=== PATIENT | male | born 1965 | race Caucasian/White ===

== ENCOUNTER 2021-01-06 15:57 | Inpatient (IN) | payer MEDICAID ==
[2021-01-06] MEDS ORDERED: Levofloxacin/Dextrose 5%-Water 500 MG in Premix Bag 1 BAG IV ONE (16:49)
--- NOTE | 2021-01-06 16:52 | EDM.PDOC ---
ED HPI GENERAL MEDICAL PROBLEM - General Chief Complaint: General Stated Complaint: Dehydration Time Seen by Provider: 01/06/21 16:40 Source of Information: Reports: Patient, Family, RN Notes Reviewed History Limitations: Reports: No Limitations - History of Present Illness INITIAL COMMENTS - FREE TEXT/NARRATIVE: 55-year-old gentleman presents emergency department the complaint of weakness, he does admit to having some low blood pressure feeling lightheaded he has been ill for about a week progressively getting worse. He is also had a weight loss over the last month or so of about 30 pounds. He states he has had some fevers but that now has resolved no shortness of breath no chest pain no nausea vomiting had some abdominal pain but that also resolved - Related Data Allergies Allergy/AdvReac Type Severity Reaction Status Date / Time ethinyl estradiol Allergy Other Verified 01/06/21 16:27 [From e ()] levonorgestrel Allergy Other Verified 01/06/21 16:27 [From Seasonale ()] Home Meds: Home Meds Valsartan/Hydrochlorothiazide [Valsartan-Hctz 160-12.5 mg Tab] 1 tab PO DAILY 01/06/21 [History] Past Medical History HEENT History: Reports: Impaired Vision Musculoskeletal History: Reports: Fracture Social & Family History - Tobacco Use Tobacco Use Status *Q: Current Every Day Tobacco User Years of Tobacco use: 45 Packs/Tins Daily: 1 - Recreational Drug Use Recreational Drug Use: No ED ROS GENERAL - Review of Systems Review Of Systems: See Below Constitutional: Reports: Fever, Weakness HEENT: Reports: No Symptoms Respiratory: Reports: No Symptoms Cardiovascular: Reports: No Symptoms GI/Abdominal: Reports: Abdominal Pain, Flatus : Reports: No Symptoms Musculoskeletal: Reports: No Symptoms Skin: Reports: No Symptoms ED EXAM, GENERAL - Physical Exam Exam: See Below Exam Limited By: No Limitations General Appearance: Alert, WD/WN, No Apparent Distress Eye Exam: Bilateral Eye: EOMI, Normal Inspection, PERRL Ears: Normal External Exam, Normal Canal, Hearing Grossly Normal, Normal TMs Nose: Normal Inspection, Normal Mucosa, No Blood Throat/Mouth: Normal Inspection, Normal Lips, Normal Teeth, Normal Gums, Normal Voice, No Airway Compromise, Other (Candidiasis posterior pharynx) Head: Atraumatic, Normocephalic Neck: Normal Inspection, Supple, Non-Tender, Full Range of Motion Respiratory/Chest: No Respiratory Distress, Lungs Clear, Normal Breath Sounds, No Accessory Muscle Use, Chest Non-Tender Cardiovascular: Regular Rate, Rhythm, No Murmur GI/Abdominal: Soft, Non-Tender Course - Vital Signs Last Recorded V/S: Last Vital Signs Temp 97.7 F 01/06/21 16:28 Pulse 99 01/06/21 17:37 Resp 19 01/06/21 17:37 BP 105/56 L 01/06/21 17:37 Pulse Ox 99 01/06/21 17:37 - Orders/Labs/Meds Orders: Active Orders 24 hr Category Date Time Status Vital Signs [RC] Q1H Care 01/06/21 16:47 Active Chest 1V Frontal [CR] Stat Exams 01/06/21 16:47 Ordered CULTURE BLOOD [BC] Urgent Lab 01/06/21 16:50 Received CULTURE BLOOD [BC] Urgent Lab 01/06/21 17:03 Received GLYCOSYLATED HEMOGLOBIN,HGBA1C [CHEM] Stat Lab 01/06/21 17:57 Ordered REFLEX LACTIC ACID YES OR NO [CHEM] Routine Lab 01/06/21 17:35 Received UA W/MICROSCOPIC [URIN] Urgent Lab 01/06/21 16:46 Ordered Lactated Ringers [Ringers, Lactated] 1,000 ml Med 01/06/21 17:00 Active IV ASDIRECTED Blood Culture x2 Reflex Set [OM.PC] Urgent Oth 01/06/21 16:47 Ordered Severe Sepsis Onset Time [OM.PC] Stat Oth 01/06/21 16:47 Ordered Medication Orders Lactated Ringer's (Ringers, Lactated) 1,000 mls @ 999 mls/hr IV ASDIRECTED SALV[place]OR Last Admin: 01/06/21 17:06 Dose: 999 mls/hr Documented by: CORRINE Labs: Laboratory Tests 01/06/21 01/06/21 01/06/21 Range/Units 16:50 17:03 17:03 WBC (4.5-11.0) K/uL RBC (4.30-5.90) M/uL Hgb (12.0-15.0) g/dL Hct (40.0-54.0) % MCV (80-98) fL MCH (27-31) pg MCHC (32-36) % Plt Count (150-400) K/uL Neut % (Auto) Lymph % (Auto) [place] % (Auto) Eos % (Auto) Baso % (Auto) Add Manual Diff Neutrophils % (Manual) (36-66) % Band Neutrophils % (5-11) % Lymphocytes % (Manual) (24-44) % Monocytes % (Manual) (2-6) % Atypical Lymphocytes PT 11.8 (9.5-12.0) sec INR 1.08 (0.80-1.20) Sodium (140-148) mmol/L Potassium (3.6-5.2) mmol/L Chloride (100-108) mmol/L Carbon Dioxide (21-32) mmol/L Anion Gap (5.0-14.0) mmol/L BUN (7-18) mg/dL Creatinine (0.8-1.3) mg/dL Est Cr Clr Drug Dosing mL/min Estimated GFR (MDRD) (>60) Glucose (74-106) mg/dL Lactic Acid (0.4-2.0) mmol/L Calcium (8.5-10.1) mg/dL Total Bilirubin (0.2-1.0) mg/dL AST (15-37) U/L ALT (12-78) U/L Alkaline Phosphatase (46-116) U/L Troponin I < 0.017 (0.000-0.056) ng/mL C-Reactive Protein (0.0-0.3) mg/dL Total Protein (6.4-8.2) g/dL Albumin (3.4-5.0) g/dL Globulin (2.3-3.5) g/dL Albumin/Globulin Ratio (1.2-2.2) Lipase 350 (73-393) U/L Procalcitonin 1.23 ng/mL 01/06/21 01/06/21 01/06/21 Range/Units 17:03 17:03 17:03 WBC 17.3 H (4.5-11.0) K/uL RBC 4.59 (4.30-5.90) M/uL Hgb 14.6 (12.0-15.0) g/dL Hct 42.2 (40.0-54.0) % MCV 92 (80-98) fL MCH 32 H (27-31) pg MCHC 35 (32-36) % Plt Count 191 (150-400) K/uL Neut % (Auto) [place] Lymph % (Auto) [place] % (Auto) [place] Eos % (Auto) [place] Baso % (Auto) [place] Add Manual Diff Yes Neutrophils % (Manual) 72 H (36-66) % Band Neutrophils % 8 (5-11) % Lymphocytes % (Manual) 10 L (24-44) % Monocytes % (Manual) 10 H (2-6) % Atypical Lymphocytes Rare PT (9.5-12.0) sec INR (0.80-1.20) Sodium 118 L* (140-148) mmol/L Potassium 4.5 (3.6-5.2) mmol/L Chloride 77 L (100-108) mmol/L Carbon Dioxide 11 L (21-32) mmol/L Anion Gap 34.5 H (5.0-14.0) mmol/L BUN 48 H (7-18) mg/dL Creatinine 2.0 H (0.8-1.3) mg/dL Est Cr Clr Drug Dosing 33.59 mL/min Estimated GFR (MDRD) 35 L (>60) Glucose 628 H* (74-106) mg/dL Lactic Acid 2.1 H (0.4-2.0) mmol/L Calcium 8.5 (8.5-10.1) mg/dL Total Bilirubin 0.9 (0.2-1.0) mg/dL AST 47 H (15-37) U/L ALT 111 H (12-78) U/L Alkaline Phosphatase 161 H (46-116) U/L Troponin I (0.000-0.056) ng/mL C-Reactive Protein 22.50 H (0.0-0.3) mg/dL Total Protein 6.7 (6.4-8.2) g/dL Albumin 2.5 L (3.4-5.0) g/dL Globulin 4.2 H (2.3-3.5) g/dL Albumin/Globulin Ratio 0.6 L (1.2-2.2) Lipase (73-393) U/L Procalcitonin ng/mL Meds: Medications Generic Name Dose Route Start Last Admin Trade Name Freq PRN Reason Stop Dose Admin Lactated Ringer's 1,000 mls @ 999 mls/hr 01/06/21 17:00 01/06/21 17:06 Ringers, Lactated IV 999 mls/hr ASDIRECTED [place]OR Administration Discontinued Medications Generic Name Dose Route Start Last Admin Trade Name Enzo PRN Reason Stop Dose Admin Levofloxacin/Dextrose 500 mg/ 100 mls @ 100 mls/hr 01/06/21 16:49 01/06/21 17:06 Premix IV 01/06/21 17:48 100 mls/hr ONETIME ONE Administration Departure - Departure Time of Disposition: 18:05 Disposition: Admitted As Inpatient 66 Condition: Fair Clinical Impression: Sepsis Qualifiers: Sepsis type: sepsis due to unspecified organism Sepsis acute organ dysfunction status: with acute organ dysfunction Severe sepsis acute organ dysfunction type: acute renal failure Acute renal failure type: unspecified Severe sepsis shock status: without septic shock Qualified Code(s): A41.9 - Sepsis, unspecified organism; R65.20 - Severe sepsis without septic shock; N17.9 - Acute kidney failure, unspecified - Discharge Information Referrals: Tom Oden MD [Primary Care Provider] - Forms: ED Department Discharge Critical Care Note - Critical Care Note Total Time (mins): 30 Sepsis Event Note (ED) - Evaluation Sepsis Screening Result: No Definite Risk - Focused Exam Vital Signs: Vital Signs Temp Pulse Resp BP Pulse Ox 01/06/21 17:37 99 19 105/56 L 99 01/06/21 17:03 102 H 24 H 87/53 L 98 01/06/21 16:28 97.7 F 103 H 16 90/52 L 98 01/06/21 16:14 97.7 F 103 H 16 83/53 L 98 - My Orders Last 24 Hours: My Active Orders 01/06/21 16:46 UA W/MICROSCOPIC [URIN] Urgent 01/06/21 16:47 Vital Signs [RC] Q1H Chest 1V Frontal [CR] Stat Blood Culture x2 Reflex Set [OM.PC] Urgent Severe Sepsis Onset Time [OM.PC] Stat 01/06/21 16:50 CULTURE BLOOD [BC] Urgent 01/06/21 17:00 Lactated Ringers [Ringers, Lactated] 1,000 ml IV ASDIRECTED 01/06/21 17:03 CULTURE BLOOD [BC] Urgent 01/06/21 17:35 REFLEX LACTIC ACID YES OR NO [CHEM] Routine 01/06/21 17:57 GLYCOSYLATED HEMOGLOBIN,HGBA1C [CHEM] Stat - Assessment/Plan Last 24 Hours: My Active Orders 01/06/21 16:46 UA W/MICROSCOPIC [URIN] Urgent 01/06/21 16:47 Vital Signs [RC] Q1H Chest 1V Frontal [CR] Stat Blood Culture x2 Reflex Set [OM.PC] Urgent Severe Sepsis Onset Time [OM.PC] Stat 01/06/21 16:50 CULTURE BLOOD [BC] Urgent 01/06/21 17:00 Lactated Ringers [Ringers, Lactated] 1,000 ml IV ASDIRECTED 01/06/21 17:03 CULTURE BLOOD [BC] Urgent 01/06/21 17:35 REFLEX LACTIC ACID YES OR NO [CHEM] Routine 01/06/21 17:57 GLYCOSYLATED HEMOGLOBIN,HGBA1C [CHEM] Stat Plan: Assessment Acuity = acute Site and laterality = sepsis Etiology = unknown source Manifestations = hypotensive Location of injury = Home Lab values = WBC elevated 17.3 consistent leukocytosis, sodium low at 118 c orrected to 126 consistent hyponatremia creatinine elevated 2.0 consistent with acute renal failure stage G3 B glucose elevated 628 consistent hyperglycemia lactic acid elevated 2.1 AST 47 ALT 111 consistent with elevated liver enzymes troponin is negative CRP elevated 22.5 lipase is normal at 300 procalcitonin elevated 1.23, blood culture urine and chest x-ray pending Plan Call discussed case hospitalist on-call at 1800 kindly agreed to come evaluate the patient emergency department for admission thus far has received 2 L of fluids and 1 500 mg dose of Levaquin This note was dictated using [employer] voice recognition software please call with any questions on syntax or grammar.
[2021-01-06] MEDS ORDERED: Lactated Ringers 1,000 ML IV SCH (17:00)
[2021-01-06] MEDS ORDERED: Lactated Ringers 1,000 ML IV ONE (18:03)
[2021-01-06] MEDS ORDERED: Potassium Chloride 10% 20 MEQ/15 ML Soln 15 ML UD Cup PO PRN ×2 (18:22)
[2021-01-06] MEDS ORDERED: Potassium Chloride 20 MEQ in Premix Bag 1 BAG IV PRN ×4 (18:22)
[2021-01-06] MEDS ORDERED: Potassium Chloride 20 MEQ in Premix Bag 1 BAG IV ONE (18:22)
[2021-01-06] MEDS ORDERED: Magnesium Sulfate/Water 2 GM/50 ML BAG IV PRN (18:22)
[2021-01-06] MEDS ORDERED: 50% Dextrose in Water 50 ML Syringe IVPUSH PRN (18:22)
[2021-01-06] MEDS ORDERED: Sodium Chloride 0.9% 2,000 ML IV PRN (18:22)
[2021-01-06] MEDS ORDERED: Sodium Phosphate 60 MMOLE in Sodium Chloride 0.9% 250 ML IV PRN (18:22)
[2021-01-06 18:27] LABS: HEMOGLOBIN A1C 11.9 % (4.5-6.2)
[2021-01-06] MEDS ORDERED: Insulin Regular, Human 100 Units/ML 3 ML Vial IVPUSH ONE (18:29)
[2021-01-06] MEDS ORDERED: Insulin Regular in 0.9 % NACL 100 ML IV SCH (18:30)
--- NOTE | 2021-01-06 18:37 | PCM.HP.2 ---
H&P History of Present Illness - General Date of Service: 01/06/21 Admit Problem/Dx: Admission Diagnosis/Problem Admission Diagnosis/Problem Hyperglycemia Source of Information: Patient, Family, Provider, RN Notes Reviewed History Limitations: Reports: No Limitations - History of Present Illness Initial Comments - Free Text/Narative: Mr. Berry is a 55-year-old gentleman who was admitted through the emergency department with generalized weakness, dehydration, secondary to hyperosmotic hyperglycemic state. He has no prior history of diabetes. Over the past 3 weeks he has experienced sinus infection upper respiratory infection, fever, nausea vomiting with diarrhea. He no longer has a fever and has not had nausea, vomiting, or diarrhea over the past week. He is noted polydipsia and polyuria. Because of progressive weakness he presented to the emergency department today and was found to be severely hyperglycemic with a glucose level of 628. Creatinine is elevated at 2, he denies prior history of renal insufficiency. Anion gap is significantly elevated with marked decrease in carbon dioxide level. White blood cell count is elevated, but he denies symptoms of specific infection at the present time. - Related Data Allergies/Adverse Reactions: Allergies Allergy/AdvReac Type Severity Reaction Status Date / Time ethinyl estradiol Allergy Other Verified 01/06/21 16:27 [From Seasonale (91)] levonorgestrel Allergy Other Verified 01/06/21 16:27 [From Seasonale (91)] Home Medications: Home Meds Valsartan/Hydrochlorothiazide [Valsartan-Hctz 160-12.5 mg Tab] 1 tab PO DAILY 01/06/21 [History] Past Medical History HEENT History: Reports: Impaired Vision Musculoskeletal History: Reports: Fracture Social & Family History - Tobacco Use Tobacco Use Status *Q: Current Every Day Tobacco User Years of Tobacco use: 45 Packs/Tins Daily: 1 - Recreational Drug Use Recreational Drug Use: No H&P Review of Systems - Review of Systems: Review Of Systems: See Below General: Reports: Malaise, Weakness, Fatigue, Decreased Appetite, Weight Loss. Denies: Fever, Chills HEENT: Reports: No Symptoms Pulmonary: Reports: No Symptoms Cardiovascular: Reports: No Symptoms Gastrointestinal: Reports: No Symptoms Genitourinary: Reports: No Symptoms Musculoskeletal: Reports: Back Pain (Chronic) Skin: Reports: No Symptoms Psychiatric: Reports: No Symptoms Neurological: Reports: No Symptoms Hematologic/Lymphatic: Reports: No Symptoms Immunologic: Reports: No Symptoms Exam - Exam Exam: See Below - Vital Signs Vital Signs: Last Vital Signs Temp 97.7 F 01/06/21 16:28 Pulse 98 01/06/21 18:00 Resp 23 H 01/06/21 18:00 BP 111/65 01/06/21 18:00 Pulse Ox 96 01/06/21 18:00 Weight: 136 lb - Exam Quality Assessment: DVT Prophylaxis General: Alert, Oriented, Cooperative, Moderate Distress HEENT: Conjunctiva Clear, Hearing Intact, Normal Nasal Septum, Pupils Equal. No: Mucosa Moist & [place], Posterior Pharynx Clear (Thrush) Neck: Supple, Trachea Midline, +2 Carotid Pulse wo Bruit Lungs: Clear to Auscultation, Normal Respiratory Effort, Decreased Breath Sounds Cardiovascular: Regular Rate, Regular Rhythm, Normal S1, Normal S2. No: Systolic Murmur, Diastolic Murmur GI/Abdominal Exam: Soft, Non-Tender, No Organomegaly, No Distention Back Exam: Normal Inspection, Full Range of Motion, Vertebral Tenderness Extremities: Non-Tender, No Pedal Edema Skin: Warm, Dry, Intact Neurological: Cranial Nerves Intact, Strength Equal Bilateral, Normal Speech, Normal Tone, Sensation Intact. No: Focal Deficit Neuro Extensive - Mental Status: Alert, Oriented x3, Normal Mood/Affect, Normal Cognition, Memory Intact - Patient Data Lab Results Last 24 hrs: Laboratory Results - last 24 hr 01/06/21 01/06/21 01/06/21 Range/Units 16:50 17:00 17:03 WBC (4.5-11.0) K/uL RBC (4.30-5.90) M/uL Hgb (12.0-15.0) g/dL Hct (40.0-54.0) % MCV (80-98) fL MCH (27-31) pg MCHC (32-36) % Plt Count (150-400) K/uL Neut % (Auto) Lymph % (Auto) [place] % (Auto) Eos % (Auto) Baso % (Auto) Add Manual Diff Neutrophils % (Manual) (36-66) % Band Neutrophils % (5-11) % Lymphocytes % (Manual) (24-44) % Monocytes % (Manual) (2-6) % Atypical Lymphocytes PT 11.8 (9.5-12.0) sec INR 1.08 (0.80-1.20) Sodium (140-148) mmol/L Potassium (3.6-5.2) mmol/L Chloride (100-108) mmol/L Carbon Dioxide (21-32) mmol/L Anion Gap (5.0-14.0) mmol/L BUN (7-18) mg/dL Creatinine (0.8-1.3) mg/dL Est Cr Clr Drug Dosing mL/min Estimated GFR (MDRD) (>60) Glucose (74-106) mg/dL Hemoglobin A1c 11.9 H (4.5-6.2) % Lactic Acid (0.4-2.0) mmol/L Calcium (8.5-10.1) mg/dL Total Bilirubin (0.2-1.0) mg/dL AST (15-37) U/L ALT (12-78) U/L Alkaline Phosphatase (46-116) U/L Troponin I (0.000-0.056) ng/mL C-Reactive Protein (0.0-0.3) mg/dL Total Protein (6.4-8.2) g/dL Albumin (3.4-5.0) g/dL Globulin (2.3-3.5) g/dL Albumin/Globulin Ratio (1.2-2.2) Lipase (73-393) U/L Procalcitonin 1.23 ng/mL 01/06/21 01/06/21 01/06/21 Range/Units 17:03 17:03 17:03 WBC 17.3 H (4.5-11.0) K/uL RBC 4.59 (4.30-5.90) M/uL Hgb 14.6 (12.0-15.0) g/dL Hct 42.2 (40.0-54.0) % MCV 92 (80-98) fL MCH 32 H (27-31) pg MCHC 35 (32-36) % Plt Count 191 (150-400) K/uL Neut % (Auto) [employer] Lymph % (Auto) [employer] [place] % (Auto) [employer] Eos % (Auto) [employer] Baso % (Auto) [employer] Add Manual Diff Yes Neutrophils % (Manual) 72 H (36-66) % Band Neutrophils % 8 (5-11) % Lymphocytes % (Manual) 10 L (24-44) % Monocytes % (Manual) 10 H (2-6) % Atypical Lymphocytes Rare PT (9.5-12.0) sec INR (0.80-1.20) Sodium 118 L* (140-148) mmol/L Potassium 4.5 (3.6-5.2) mmol/L Chloride 77 L (100-108) mmol/L Carbon Dioxide 11 L (21-32) mmol/L Anion Gap 34.5 H (5.0-14.0) mmol/L BUN 48 H (7-18) mg/dL Creatinine 2.0 H (0.8-1.3) mg/dL Est Cr Clr Drug Dosing 33.59 mL/min Estimated GFR (MDRD) 35 L (>60) Glucose 628 H* (74-106) mg/dL Hemoglobin A1c (4.5-6.2) % Lactic Acid (0.4-2.0) mmol/L Calcium 8.5 (8.5-10.1) mg/dL Total Bilirubin 0.9 (0.2-1.0) mg/dL AST 47 H (15-37) U/L ALT 111 H (12-78) U/L Alkaline Phosphatase 161 H (46-116) U/L Troponin I < 0.017 (0.000-0.056) ng/mL C-Reactive Protein 22.50 H (0.0-0.3) mg/dL Total Protein 6.7 (6.4-8.2) g/dL Albumin 2.5 L (3.4-5.0) g/dL Globulin 4.2 H (2.3-3.5) g/dL Albumin/Globulin Ratio 0.6 L (1.2-2.2) Lipase 350 (73-393) U/L Procalcitonin ng/mL 01/06/21 Range/Units 17:03 WBC (4.5-11.0) K/uL RBC (4.30-5.90) M/uL Hgb (12.0-15.0) g/dL Hct (40.0-54.0) % MCV (80-98) fL MCH (27-31) pg MCHC (32-36) % Plt Count (150-400) K/uL Neut % (Auto) Lymph % (Auto) [place] % (Auto) Eos % (Auto) Baso % (Auto) Add Manual Diff Neutrophils % (Manual) (36-66) % Band Neutrophils % (5-11) % Lymphocytes % (Manual) (24-44) % Monocytes % (Manual) (2-6) % Atypical Lymphocytes PT (9.5-12.0) sec INR (0.80-1.20) Sodium (140-148) mmol/L Potassium (3.6-5.2) mmol/L Chloride (100-108) mmol/L Carbon Dioxide (21-32) mmol/L Anion Gap (5.0-14.0) mmol/L BUN (7-18) mg/dL Creatinine (0.8-1.3) mg/dL Est Cr Clr Drug Dosing mL/min Estimated GFR (MDRD) (>60) Glucose (74-106) mg/dL Hemoglobin A1c (4.5-6.2) % Lactic Acid 2.1 H (0.4-2.0) mmol/L Calcium (8.5-10.1) mg/dL Total Bilirubin (0.2-1.0) mg/dL AST (15-37) U/L ALT (12-78) U/L Alkaline Phosphatase (46-116) U/L Troponin I (0.000-0.056) ng/mL C-Reactive Protein (0.0-0.3) mg/dL Total Protein (6.4-8.2) g/dL Albumin (3.4-5.0) g/dL Globulin (2.3-3.5) g/dL Albumin/Globulin Ratio (1.2-2.2) Lipase (73-393) U/L Procalcitonin ng/mL Result Diagrams: 01/06/21 17:03 01/06/21 17:03 Sepsis Event Note - Evaluation Sepsis Screening Result: No Definite Risk - Focused Exam Vital Signs: Vital Signs Temp Pulse Resp BP Pulse Ox 01/06/21 18:00 98 23 H 111/65 96 01/06/21 17:37 99 19 105/56 L 99 01/06/21 17:03 102 H 24 H 87/53 L 98 01/06/21 16:28 97.7 F 103 H 16 90/52 L 98 01/06/21 16:14 97.7 F 103 H 16 83/53 L 98 *Q Meaningful Use (ADM) - VTE Risk Assess *Q Each Risk Factor Represents 1 Point: Age 41 - 59 years Total Score 1 Point Risk Factors: 1 Each Risk Factor Represents 2 Points: None Total Score 2 Point Risk Factors: 0 Each Risk Factor Represents 3 Points: None Total Score 3 Point Risk Factors: 0 Each Risk Factor Represents 5 Points: None Total Score 5 Point Risk Factors: 0 Venous Thromboembolism Risk Factor Score *Q: 1 Problem List Initiated/Reviewed/Updated: Yes Orders Last 24hrs: Active Orders 24 hr Category Date Time Status Patient Status Manage Transfer [TRANSFER] Routine ADT 01/06/21 18:31 Ordered Blood Glucose Check, Bedside [RC] Q1H Care 01/06/21 18:22 Active Communication Order [RC] ASDIRECTED Care 01/06/21 18:22 Active Diabetes Education [RC] Click to Edit Care 01/06/21 18:22 Active Diabetes Education [RC] Click to Edit Care 01/06/21 18:22 Active Notify Provider Laboratory Res [RC] ASDIRECTED Care 01/06/21 18:23 Active Notify Provider Laboratory Res [RC] ASDIRECTED Care 01/06/21 18:24 Active Notify Provider Laboratory Res [RC] ASDIRECTED Care 01/06/21 18:24 Active Notify Provider [RC] PRN Care 01/06/21 18:22 Active Vital Signs [RC] Q1H Care 01/06/21 16:47 Active Vital Signs [RC] Q1H Care 01/06/21 18:22 Active Chest 1V Frontal [CR] Stat Exams 01/06/21 16:47 Taken BASIC METABOLIC PANEL,BMP [CHEM] Q4H Lab 01/06/21 18:30 Ordered BASIC METABOLIC PANEL,BMP [CHEM] Q4H Lab 01/06/21 22:30 Ordered BASIC METABOLIC PANEL,BMP [CHEM] Q4H Lab 01/07/21 02:30 Ordered BASIC METABOLIC PANEL,BMP [CHEM] Q4H Lab 01/07/21 06:30 Ordered BASIC METABOLIC PANEL,BMP [CHEM] Q4H Lab 01/07/21 10:30 Ordered BASIC METABOLIC PANEL,BMP [CHEM] Q4H Lab 01/07/21 14:30 Ordered COVID-19/FLU A+B/RSV [MOLEC] Urgent Lab 01/06/21 18:07 Ordered CULTURE BLOOD [BC] Urgent Lab 01/06/21 16:50 Received CULTURE BLOOD [BC] Urgent Lab 01/06/21 17:03 Received KETONES,URINE [URIN] Stat Lab 01/06/21 18:22 Ordered MAGNESIUM [CHEM] Q Lab 01/06/21 18:30 Ordered MAGNESIUM [CHEM] Q Lab 01/07/21 00:30 Ordered MAGNESIUM [CHEM] Q Lab 01/07/21 06:30 Ordered MAGNESIUM [CHEM] Q Lab 01/07/21 12:30 Ordered PHOSPHORUS [CHEM] Q Lab 01/06/21 18:30 Ordered PHOSPHORUS [CHEM] Q Lab 01/07/21 00:30 Ordered PHOSPHORUS [CHEM] [facility] Lab 01/07/21 06:30 Ordered PHOSPHORUS [CHEM] [facility] Lab 01/07/21 12:30 Ordered POTASSIUM,K [CHEM] [facility] Lab 01/06/21 20:30 Ordered POTASSIUM,K [CHEM] [facility] Lab 01/07/21 00:30 Ordered POTASSIUM,K [CHEM] [facility] 01/07/21 02:30 Ordered POTASSIUM,K [CHEM] [facility] 01/07/21 04:30 Ordered POTASSIUM,K [CHEM] [facility] 01/07/21 06:30 Ordered POTASSIUM,K [CHEM] [facility] 01/07/21 08:30 Ordered POTASSIUM,K [CHEM] [facility] 01/07/21 10:30 Ordered POTASSIUM,K [CHEM] [facility] 01/07/21 12:30 Ordered POTASSIUM,K [CHEM] [facility] 01/07/21 14:30 Ordered POTASSIUM,K [CHEM] [facility] 01/07/21 16:30 Ordered REFLEX LACTIC ACID YES OR NO [CHEM] Routine Lab 01/06/21 17:35 Received UA W/MICROSCOPIC [URIN] Urgent Lab 01/06/21 16:46 Ordered Dextrose 5%-0.45% NaCl [Dextrose 5%-1/2 NS] 1,000 ml Med 01/06/21 18:22 Active IV .CONTINUOUS Dextrose 50% in Water Med 01/06/21 18:22 Active 50 ml IVPUSH ONETIME PRN Insulin Regular in 0.9 % NACL [Myxredlin in NS 100 UNIT Med 01/06/21 18:30 Active /100 ML] 100 ml IV ASDIRECTED Lactated Ringers [Ringers, Lactated] 1,000 ml Med 01/06/21 18:03 Active IV BOLUS Magnesium Sulfate/Water [Magnesium Sulfate in Water 2 Med 01/06/21 18:22 Active GM/50 ML] 2 gm in 50 ml IV ONETIME Potassium Chloride [KCL in Water 20 MEQ/100 ML] 20 meq Med 01/06/21 18:22 Active Premix Bag 1 bag IV ONETIME Potassium Chloride [KCL in Water 20 MEQ/100 ML] 20 meq Med 01/06/21 18:22 Active Premix Bag 1 bag IV Q2H Potassium Chloride [KCL in Water 20 MEQ/100 ML] 20 meq Med 01/06/21 18:22 Active Premix Bag 1 bag IV Q2H Potassium Chloride [Potassium Chloride Solution] Med 01/06/21 18:22 Active 20 meq PO NOW PRN Potassium Chloride [Potassium Chloride Solution] [facility] 01/06/21 18:22 Active 40 meq PO NOW PRN Potassium Chloride [Potassium Chloride Solution] [facility] 01/06/21 18:22 Active 40 meq PO Q2H PRN Sodium Chloride 0.9% [Normal Saline] 2,000 ml [facility] 01/06/21 18:22 Active IV .CONTINUOUS Sodium Phosphate 60 mmole Med 01/06/21 18:22 Active Sodium Chloride 0.9% [Normal Saline] 250 ml IV ONETIME Blood Culture x2 Reflex Set [OM.PC] Urgent Ot 01/06/21 16:47 Ordered Medication Continuation Instructions [OM.PC] ASDIRECTED Ot 01/06/21 18:30 Ordered Medication Discontinuation Instructions [OM.PC] Ot 01/06/21 18:30 Ordered ASDIRECTED Severe Sepsis Onset Time [OM.PC] Stat Ot 01/06/21 16:47 Ordered Resuscitation Status Routine Resus Stat 01/06/21 18:34 Ordered Medication Orders Dextrose/Water (50% Dextrose In Water 50 Ml Syringe) 50 ml IVPUSH ONETIME PRN PRN Reason: Blood Glucose Lactated Ringer's (Ringers, Lactated) 1,000 mls @ 999 mls/hr IV BOLUS ONE Stop: 01/06/21 19:03 Last Admin: 01/06/21 18:05 Dose: 999 mls/hr Documented by: CORRINE Sodium Chloride (Normal Saline) 2,000 mls @ 500 mls/hr IV .CONTINUOUS PRN PRN Reason: Blood Glucose Dextrose/Sodium Chloride (Dextrose 5%-1/2 Ns) 1,000 mls @ 150 mls/hr IV .CONTINUOUS PRN PRN Reason: Blood Glucose Potassium Chloride 20 meq/ (Premix) 100 mls @ 50 mls/hr IV ONETIME ONE Stop: 01/06/21 20:21 Potassium Chloride 20 meq/ (Premix) 100 mls @ 50 mls/hr IV Q2H PRN PRN Reason: Hypokalemia Potassium Chloride 20 meq/ (Premix) 100 mls @ 50 mls/hr IV Q2H PRN PRN Reason: Hypokalemia Magnesium Sulfate (Magnesium Sulfate In Water 2 Gm/50 Ml) 2 gm in 50 mls @ 25 mls/hr IV ONETIME PRN PRN Reason: low magnesium Sodium Phosphate 60 mmole/ (Sodium Chloride) 270 mls @ 62.5 mls/hr IV ONETIME PRN PRN Reason: Low phophorus Insulin Regular in 0.9 % NACL (Myxredlin In Ns 100 Unit/100 Ml) 100 mls @ 6.169 mls/hr IV ASDIRECTED [place]; Protocol Potassium Chloride (Potassium Chloride 10% 20 Meq/15 Ml Soln 15 Ml Ud Cup) 20 meq PO NOW PRN PRN Reason: Hypokalemia Potassium Chloride (Potassium Chloride 10% 20 Meq/15 Ml Soln 15 Ml Ud Cup) 40 meq PO NOW PRN PRN Reason: Hypokalemia Potassium Chloride (Potassium Chloride 10% 20 Meq/15 Ml Soln 15 Ml Ud Cup) 40 meq PO Q2H PRN PRN Reason: Hypokalemia Assessment/Plan Comment:: ASSESSMENT AND PLAN HYPEROSMOTIC HYPERGLYCEMIC STATE-secondary to uncontrolled type 2 diabetes mellitus. -IV insulin bolus and continuous infusion of insulin per protocol -IV fluids per protocol -Close monitoring of electrolytes and glucose level -Electrolyte replacement per protocol POSSIBLE INFECTION-elevated white blood cell count, question of sepsis with hypotension. Findings may also be secondary to his hyperosmotic hyperglycemic state. Chest x-ray shows no obvious infiltrates, urinalysis is pending. -Blood cultures pending -Urinalysis pending -Empiric IV antibiotic therapy; vancomycin and meropenem pending cultures and further evaluation -Consider further evaluation including CT scan of the abdomen TYPE 2 DIABETES MELLITUS-new diagnosis -Management as above -Transition to other medications when HHS has stabilized ACUTE KIDNEY INJURY-likely secondary to dehydration and intravascular volume depletion -IV fluids as above -Closely monitor urine output and renal function HYPONATREMIA-some of this is pseudohyponatremia related to current hyperosmolar state -IV fluids and management as above -Follow sodium levels with BMP per protocol NICOTINE DEPENDENCE -Nicotine patch and nicotine gum as needed MAINTENANCE ISSUES -DVT prophylaxis; SCUDs -GI prophylaxis; not indicated -Mcgraw catheter; not indicated -Nutrition; consistent carbohydrate diet -Nicotine dependence; nicotine replacement as above CODE STATUS-FULL CODE ADMISSION STATUS-patient will be admitted to inpatient status, expect at least a 2 night hospital stay for evaluation and management of problems as outlined above. At the time of this admission I do not reasonably expected evaluation and management of this problem will require more than a 96 hour hospital stay. DISPOSITION-anticipate discharge to home after the hospital stay. PRIMARY CARE PROVIDER-Dr. Oden - Mortality Measure Prognosis:: Good
[2021-01-06 18:59] LABS: CORONAVIRUS COVID-19 NAA NEGATIVE (NEGATIVE)
[2021-01-06] MEDS ORDERED: Vancomycin 1 GM SDV IV SCH (19:09)
[2021-01-06] MEDS ORDERED: Sodium Chloride 0.9% 10 ML Syringe FLUSH PRN (19:09)
[2021-01-06] MEDS ORDERED: Albuterol 0.083% 2.5 MG/3 ML Neb Soln NEB PRN (19:09)
[2021-01-06] MEDS ORDERED: Polyethylene Glycol 3350 Powder 17 GM Packet PO PRN (19:09)
[2021-01-06] MEDS ORDERED: Acetaminophen 325 MG Tab PO PRN (19:09)
[2021-01-06] MEDS ORDERED: Nicotine Polacrilex 2 MG Gum CHEW PRN (19:17)
[2021-01-06] MEDS ORDERED: Meropenem 1 GM in Sodium Chloride 0.9% 100 ML IV SCH (20:00)
[2021-01-06] MEDS: Nicotine 7 MG/24 Hr Patch TRDERM SCH (20:22)
[2021-01-06] MEDS: Nicotine 21 MG/24 Hr Patch TRDERM SCH (20:22)
[2021-01-06] MEDS: Potassium Chloride 10% 20 MEQ/15 ML Soln 15 ML UD Cup PO PRN (23:06)
[2021-01-06] MEDS: Clotrimazole 10 MG Troche PO SCH (23:14)
[2021-01-06] MEDS: Norepinephrine 4 MG in Dextrose 5% in Water 246 ML IV SCH ×2 (23:43)
[2021-01-07] MEDS: Dextrose 5%-0.45% NaCl 1,000 ML IV PRN ×2 (00:57→07:45)
[2021-01-07] MEDS: Ondansetron 4 MG/2 ML SDV IV PRN ×3 (02:11→09:24)
[2021-01-07] MEDS: Clotrimazole 10 MG Troche PO SCH ×5 (06:16→21:01)
[2021-01-07] MEDS: Potassium Chloride 10% 20 MEQ/15 ML Soln 15 ML UD Cup PO PRN ×2 (06:16→09:40)
[2021-01-07] MEDS: Meropenem 1 GM in Sodium Chloride 0.9% 100 ML IV SCH ×3 (08:18→23:00)
[2021-01-07] MEDS: Nicotine 21 MG/24 Hr Patch TRDERM SCH (08:20)
[2021-01-07] MEDS: Nicotine 7 MG/24 Hr Patch TRDERM SCH (08:22)
[2021-01-07] MEDS ORDERED: Sodium Phosphate 60 MMOLE in Sodium Chloride 0.9% 250 ML IV PRN (08:54)
--- NOTE | 2021-01-07 08:54 | CR ---
CHEST: Portable 01/06/2021 6:14 PM CLINICAL HISTORY:Low blood pressure COMPARISON:None FINDINGS: The heart size, pulmonary vascularity and hilar structures are normal. No infiltrate effusion or pneumothorax is seen. IMPRESSION: No acute cardiopulmonary process.
[2021-01-07] MEDS ORDERED: 50% Dextrose in Water 50 ML Syringe IV PRN (11:15)
[2021-01-07] MEDS ORDERED: Glucose Gel 15 GM in 37.5 GM Tube PO PRN (11:15)
--- NOTE | 2021-01-07 11:28 | PCM.PN ---
- General Info Date of Service: 01/07/21 Subjective Update: Mr. Berry's been stable since admission yesterday. Appetite remains somewhat poor, he denies abdominal pain, nausea, or vomiting. Blood sugars have come under much better control with use of insulin infusion and many of his electrolyte abnormalities have improved with glucose control and IV fluids. Functional Status: Reports: Urinating. Denies: Tolerating Diet - Review of Systems General: Reports: Weakness, Fatigue, Malaise. Denies: Appetite Pulmonary: Reports: No Symptoms Cardiovascular: Reports: No Symptoms Gastrointestinal: Reports: No Symptoms - Patient Data Vitals - Most Recent: Last Vital Signs Temp 98.6 F 01/07/21 07:00 Pulse 89 01/07/21 10:00 Resp 14 01/07/21 10:00 BP 118/70 01/07/21 10:00 Pulse Ox 94 L 01/07/21 10:00 Weight - Most Recent: 136 lb 0.015 oz I&O - Last 24 Hours: Intake & Output 01/06/21 01/07/21 01/07/21 22:59 06:59 14:59 Intake Total 2450 1775 90 Output Total 700 500 Balance 2450 1075 -410 Lab Results Last 24 Hours: Laboratory Results - last 24 hr 01/06/21 01/06/21 01/06/21 Range/Units 16:50 17:00 17:03 WBC (4.5-11.0) K/uL RBC (4.30-5.90) M/uL Hgb (12.0-15.0) g/dL Hct (40.0-54.0) % MCV (80-98) fL MCH (27-31) pg MCHC (32-36) % Plt Count (150-400) K/uL Neut % (Auto) Lymph % (Auto) [place] % (Auto) Eos % (Auto) Baso % (Auto) Add Manual Diff Neutrophils % (Manual) (36-66) % Band Neutrophils % (5-11) % Lymphocytes % (Manual) (24-44) % Monocytes % (Manual) (2-6) % Eosinophils % (Manual) (2-4) % Atypical Lymphocytes PT 11.8 (9.5-12.0) sec INR 1.08 (0.80-1.20) Sodium (140-148) mmol/L Potassium (3.6-5.2) mmol/L Chloride (100-108) mmol/L Carbon Dioxide (21-32) mmol/L Anion Gap (5.0-14.0) mmol/L BUN (7-18) mg/dL Creatinine (0.8-1.3) mg/dL Est Cr Clr Drug Dosing mL/min Estimated GFR (MDRD) (>60) Glucose (74-106) mg/dL Hemoglobin A1c 11.9 H (4.5-6.2) % Lactic Acid (0.4-2.0) mmol/L Calcium (8.5-10.1) mg/dL Phosphorus (2.5-4.9) mg/dL Magnesium (1.8-2.4) mg/dL Total Bilirubin (0.2-1.0) mg/dL AST (15-37) U/L ALT (12-78) U/L Alkaline Phosphatase (46-116) U/L Troponin I (0.000-0.056) ng/mL C-Reactive Protein (0.0-0.3) mg/dL Total Protein (6.4-8.2) g/dL Albumin (3.4-5.0) g/dL Globulin (2.3-3.5) g/dL Albumin/Globulin Ratio (1.2-2.2) Lipase (73-393) U/L Procalcitonin 1.23 ng/mL Urine Color (YELLOW) Urine Appearance (CLEAR) Urine pH (5.0-8.0) Ur Specific [place] (1.008-1.030) Urine Protein (NEGATIVE) mg/dL Urine Glucose (UA) (NEGATIVE) mg/dL Urine Ketones (NEGATIVE) mg/dL Urine Occult Blood (NEGATIVE) Urine Nitrite (NEGATIVE) Urine Bilirubin (NEGATIVE) Urine Urobilinogen (0.2-1.0) EU/dL Ur Leukocyte Esterase (NEGATIVE) Urine RBC (0-5) Urine WBC (0-5) Ur Epithelial Cells Amorphous Sediment Urine Bacteria Urine Mucus Ketones (NEGATIVE) Influenza Type A RNA (NEGATIVE) RSV RNA (INAAT) (NEGATIVE) Influenza Type B RNA (NEGATIVE) SARS-CoV-2 RNA (KULWANT) (NEGATIVE) 01/06/21 01/06/21 01/06/21 Range/Units 17:03 17:03 17:03 WBC 17.3 H (4.5-11.0) K/uL RBC 4.59 (4.30-5.90) M/uL Hgb 14.6 (12.0-15.0) g/dL Hct 42.2 (40.0-54.0) % MCV 92 (80-98) fL MCH 32 H (27-31) pg MCHC 35 (32-36) % Plt Count 191 (150-400) K/uL Neut % (Auto) [employer] Lymph % (Auto) [employer] [place] % (Auto) [employer] Eos % (Auto) [employer] Baso % (Auto) [employer] Add Manual Diff Yes Neutrophils % (Manual) 72 H (36-66) % Band Neutrophils % 8 (5-11) % Lymphocytes % (Manual) 10 L (24-44) % Monocytes % (Manual) 10 H (2-6) % Eosinophils % (Manual) (2-4) % Atypical Lymphocytes Rare PT (9.5-12.0) sec INR (0.80-1.20) Sodium 118 L* (140-148) mmol/L Potassium 4.5 (3.6-5.2) mmol/L Chloride 77 L (100-108) mmol/L Carbon Dioxide 11 L (21-32) mmol/L Anion Gap 34.5 H (5.0-14.0) mmol/L BUN 48 H (7-18) mg/dL Creatinine 2.0 H (0.8-1.3) mg/dL Est Cr Clr Drug Dosing 33.59 mL/min Estimated GFR (MDRD) 35 L (>60) Glucose 628 H* (74-106) mg/dL Hemoglobin A1c (4.5-6.2) % Lactic Acid (0.4-2.0) mmol/L Calcium 8.5 (8.5-10.1) mg/dL Phosphorus (2.5-4.9) mg/dL Magnesium (1.8-2.4) mg/dL Total Bilirubin 0.9 (0.2-1.0) mg/dL AST 47 H (15-37) U/L ALT 111 H (12-78) U/L Alkaline Phosphatase 161 H (46-116) U/L Troponin I < 0.017 (0.000-0.056) ng/mL C-Reactive Protein 22.50 H (0.0-0.3) mg/dL Total Protein 6.7 (6.4-8.2) g/dL Albumin 2.5 L (3.4-5.0) g/dL Globulin 4.2 H (2.3-3.5) g/dL Albumin/Globulin Ratio 0.6 L (1.2-2.2) Lipase 350 (73-393) U/L Procalcitonin ng/mL Urine Color (YELLOW) Urine Appearance (CLEAR) Urine pH (5.0-8.0) Ur Specific [place] (1.008-1.030) Urine Protein (NEGATIVE) mg/dL Urine Glucose (UA) (NEGATIVE) mg/dL Urine Ketones (NEGATIVE) mg/dL Urine Occult Blood (NEGATIVE) Urine Nitrite (NEGATIVE) Urine Bilirubin (NEGATIVE) Urine Urobilinogen (0.2-1.0) EU/dL Ur Leukocyte Esterase (NEGATIVE) Urine RBC (0-5) Urine WBC (0-5) Ur Epithelial Cells Amorphous Sediment Urine Bacteria Urine Mucus Ketones (NEGATIVE) Influenza Type A RNA (NEGATIVE) RSV RNA (INAAT) (NEGATIVE) Influenza Type B RNA (NEGATIVE) SARS-CoV-2 RNA (KULWANT) (NEGATIVE) 01/06/21 01/06/21 01/06/21 Range/Units 17:03 18:07 18:50 WBC (4.5-11.0) K/uL RBC (4.30-5.90) M/uL Hgb (12.0-15.0) g/dL Hct (40.0-54.0) % MCV (80-98) fL MCH (27-31) pg MCHC (32-36) % Plt Count (150-400) K/uL Neut % (Auto) Lymph % (Auto) [place] % (Auto) Eos % (Auto) Baso % (Auto) Add Manual Diff Neutrophils % (Manual) (36-66) % Band Neutrophils % (5-11) % Lymphocytes % (Manual) (24-44) % Monocytes % (Manual) (2-6) % Eosinophils % (Manual) (2-4) % Atypical Lymphocytes PT (9.5-12.0) sec INR (0.80-1.20) Sodium 118 L* (140-148) mmol/L Potassium 4.6 (3.6-5.2) mmol/L Chloride 79 L (100-108) mmol/L Carbon Dioxide 13 L (21-32) mmol/L Anion Gap 30.6 H (5.0-14.0) mmol/L BUN 46 H (7-18) mg/dL Creatinine 1.8 H (0.8-1.3) mg/dL Est Cr Clr Drug Dosing 37.32 mL/min Estimated GFR (MDRD) 39 L (>60) Glucose 610 H* (74-106) mg/dL Hemoglobin A1c (4.5-6.2) % Lactic Acid 2.1 H (0.4-2.0) mmol/L Calcium 8.3 L (8.5-10.1) mg/dL Phosphorus 4.1 (2.5-4.9) mg/dL Magnesium 3.5 H (1.8-2.4) mg/dL Total Bilirubin (0.2-1.0) mg/dL AST (15-37) U/L ALT (12-78) U/L Alkaline Phosphatase (46-116) U/L Troponin I (0.000-0.056) ng/mL C-Reactive Protein (0.0-0.3) mg/dL Total Protein (6.4-8.2) g/dL Albumin (3.4-5.0) g/dL Globulin (2.3-3.5) g/dL Albumin/Globulin Ratio (1.2-2.2) Lipase (73-393) U/L Procalcitonin ng/mL Urine Color (YELLOW) Urine Appearance (CLEAR) Urine pH (5.0-8.0) Ur Specific [place] (1.008-1.030) Urine Protein (NEGATIVE) mg/dL Urine Glucose (UA) (NEGATIVE) mg/dL Urine Ketones (NEGATIVE) mg/dL Urine Occult Blood (NEGATIVE) Urine Nitrite (NEGATIVE) Urine Bilirubin (NEGATIVE) Urine Urobilinogen (0.2-1.0) EU/dL Ur Leukocyte Esterase (NEGATIVE) Urine RBC (0-5) Urine WBC (0-5) Ur Epithelial Cells Amorphous Sediment Urine Bacteria Urine Mucus Ketones (NEGATIVE) Influenza Type A RNA Negative (NEGATIVE) RSV RNA (INAAT) Negative (NEGATIVE) Influenza Type B RNA Negative (NEGATIVE) SARS-CoV-2 RNA (KULW[place]) Negative (NEGATIVE) 01/06/21 01/06/2121 Range/Units 18:56 20:37 20:37 WBC (4.5-11.0) K/uL RBC (4.30-5.90) M/uL Hgb (12.0-15.0) g/dL Hct (40.0-54.0) % MCV (80-98) fL MCH (27-31) pg MCHC (32-36) % Plt Count (150-400) K/uL Neut % (Auto) Lymph % (Auto) [place] % (Auto) Eos % (Auto) Baso % (Auto) Add Manual Diff Neutrophils % (Manual) (36-66) % Band Neutrophils % (5-11) % Lymphocytes % (Manual) (24-44) % Monocytes % (Manual) (2-6) % Eosinophils % (Manual) (2-4) % Atypical Lymphocytes PT (9.5-12.0) sec INR (0.80-1.20) Sodium (140-148) mmol/L Potassium 4.0 (3.6-5.2) mmol/L Chloride (100-108) mmol/L Carbon Dioxide (21-32) mmol/L Anion Gap (5.0-14.0) mmol/L BUN (7-18) mg/dL Creatinine (0.8-1.3) mg/dL Est Cr Clr Drug Dosing mL/min Estimated GFR (MDRD) (>60) Glucose (74-106) mg/dL Hemoglobin A1c (4.5-6.2) % Lactic Acid 2.1 H (0.4-2.0) mmol/L Calcium (8.5-10.1) mg/dL Phosphorus (2.5-4.9) mg/dL Magnesium (1.8-2.4) mg/dL Total Bilirubin (0.2-1.0) mg/dL AST (15-37) U/L ALT (12-78) U/L Alkaline Phosphatase (46-116) U/L Troponin I (0.000-0.056) ng/mL C-Reactive Protein (0.0-0.3) mg/dL Total Protein (6.4-8.2) g/dL Albumin (3.4-5.0) g/dL Globulin (2.3-3.5) g/dL Albumin/Globulin Ratio (1.2-2.2) Lipase (73-393) U/L Procalcitonin ng/mL Urine Color (YELLOW) Urine Appearance (CLEAR) Urine pH (5.0-8.0) Ur Specific [place] (1.008-1.030) Urine Protein (NEGATIVE) mg/dL Urine Glucose (UA) (NEGATIVE) mg/dL Urine Ketones (NEGATIVE) mg/dL Urine Occult Blood (NEGATIVE) Urine Nitrite (NEGATIVE) Urine Bilirubin (NEGATIVE) Urine Urobilinogen (0.2-1.0) EU/dL Ur Leukocyte Esterase (NEGATIVE) Urine RBC (0-5) Urine WBC (0-5) Ur Epithelial Cells Amorphous Sediment Urine Bacteria Urine Mucus Ketones Moderate H (NEGATIVE) Influenza Type A RNA (NEGATIVE) RSV RNA (INAAT) (NEGATIVE) Influenza Type B RNA (NEGATIVE) SARS-CoV-2 RNA (KUL[place]) (NEGATIVE) 01/06/21 01/07/21 01/07/21 Range/Units 22:35 00:30 02:35 WBC (4.5-11.0) K/uL RBC (4.30-5.90) M/uL Hgb (12.0-15.0) g/dL Hct (40.0-54.0) % MCV (80-98) fL MCH (27-31) pg MCHC (32-36) % Plt Count (150-400) K/uL Neut % (Auto) Lymph % (Auto) [place] % (Auto) Eos % (Auto) Baso % (Auto) Add Manual Diff Neutrophils % (Manual) (36-66) % Band Neutrophils % (5-11) % Lymphocytes % (Manual) (24-44) % Monocytes % (Manual) (2-6) % Eosinophils % (Manual) (2-4) % Atypical Lymphocytes PT (9.5-12.0) sec INR (0.80-1.20) Sodium 126 L (140-148) mmol/L Potassium 3.9 4.0 (3.6-5.2) mmol/L Chloride 88 L (100-108) mmol/L Carbon Dioxide 21 (21-32) mmol/L Anion Gap 20.9 H (5.0-14.0) mmol/L BUN 43 H (7-18) mg/dL Creatinine 1.7 H (0.8-1.3) mg/dL Est Cr Clr Drug Dosing 42.84 mL/min Estimated GFR (MDRD) 42 L (>60) Glucose 297 H (74-106) mg/dL Hemoglobin A1c (4.5-6.2) % Lactic Acid (0.4-2.0) mmol/L Calcium 7.7 L (8.5-10.1) mg/dL Phosphorus 1.5 L (2.5-4.9) mg/dL Magnesium 2.9 H (1.8-2.4) mg/dL Total Bilirubin (0.2-1.0) mg/dL AST (15-37) U/L ALT (12-78) U/L Alkaline Phosphatase (46-116) U/L Troponin I (0.000-0.056) ng/mL C-Reactive Protein (0.0-0.3) mg/dL Total Protein (6.4-8.2) g/dL Albumin (3.4-5.0) g/dL Globulin (2.3-3.5) g/dL Albumin/Globulin Ratio (1.2-2.2) Lipase (73-393) U/L Procalcitonin ng/mL Urine Color Yellow (YELLOW) Urine Appearance Clear (CLEAR) Urine pH 5.5 (5.0-8.0) Ur Specific [place] 1.015 (1.008-1.030) Urine Protein Negative (NEGATIVE) mg/dL Urine Glucose (UA) 500 H (NEGATIVE) mg/dL Urine Ketones 40 H (NEGATIVE) mg/dL Urine Occult Blood Negative (NEGATIVE) Urine Nitrite Negative (NEGATIVE) Urine Bilirubin Small H (NEGATIVE) Urine Urobilinogen 0.2 (0.2-1.0) EU/dL Ur Leukocyte Esterase Negative (NEGATIVE) Urine RBC 0-5 (0-5) Urine WBC 0-5 (0-5) Ur Epithelial Cells Few Amorphous Sediment Not seen Urine Bacteria Few Urine Mucus Not seen Ketones (NEGATIVE) Influenza Type A RNA (NEGATIVE) RSV RNA (INAAT) (NEGATIVE) Influenza Type B RNA (NEGATIVE) SARS-CoV-2 RNA ([place]) (NEGATIVE) 01/07/21 01/07/21 01/07/21 Range/Units 02:35 04:44 04:44 WBC 14.9 H (4.5-11.0) K/uL RBC 3.68 L (4.30-5.90) M/uL Hgb 11.9 L D (12.0-15.0) g/dL Hct 32.9 L (40.0-54.0) % MCV 89 (80-98) fL MCH 32 H (27-31) pg MCHC 36 (32-36) % Plt Count 136 L (150-400) K/uL Neut % (Auto) Lymph % (Auto) [place] % (Auto) Eos % (Auto) Baso % (Auto) Add Manual Diff Yes Neutrophils % (Manual) 64 (36-66) % Band Neutrophils % 12 H (5-11) % Lymphocytes % (Manual) 12 L (24-44) % Monocytes % (Manual) 10 H (2-6) % Eosinophils % (Manual) 2 (2-4) % Atypical Lymphocytes PT (9.5-12.0) sec INR (0.80-1.20) Sodium 128 L (140-148) mmol/L Potassium 4.0 3.7 (3.6-5.2) mmol/L Chloride 93 L (100-108) mmol/L Carbon Dioxide 22 (21-32) mmol/L Anion Gap 17.0 H (5.0-14.0) mmol/L BUN 33 H (7-18) mg/dL Creatinine 1.4 H (0.8-1.3) mg/dL Est Cr Clr Drug Dosing 52.02 mL/min Estimated GFR (MDRD) 53 L (>60) Glucose 254 H (74-106) mg/dL Hemoglobin A1c (4.5-6.2) % Lactic Acid (0.4-2.0) mmol/L Calcium 7.7 L (8.5-10.1) mg/dL Phosphorus (2.5-4.9) mg/dL Magnesium (1.8-2.4) mg/dL Total Bilirubin (0.2-1.0) mg/dL AST (15-37) U/L ALT (12-78) U/L Alkaline Phosphatase (46-116) U/L Troponin I (0.000-0.056) ng/mL C-Reactive Protein (0.0-0.3) mg/dL Total Protein (6.4-8.2) g/dL Albumin (3.4-5.0) g/dL Globulin (2.3-3.5) g/dL Albumin/Globulin Ratio (1.2-2.2) Lipase (73-393) U/L Procalcitonin ng/mL Urine Color (YELLOW) Urine Appearance (CLEAR) Urine pH (5.0-8.0) Ur Specific [place] (1.008-1.030) Urine Protein (NEGATIVE) mg/dL Urine Glucose (UA) (NEGATIVE) mg/dL Urine Ketones (NEGATIVE) mg/dL Urine Occult Blood (NEGATIVE) Urine Nitrite (NEGATIVE) Urine Bilirubin (NEGATIVE) Urine Urobilinogen (0.2-1.0) EU/dL Ur Leukocyte Esterase (NEGATIVE) Urine RBC (0-5) Urine WBC (0-5) Ur Epithelial Cells Amorphous Sediment Urine Bacteria Urine Mucus Ketones (NEGATIVE) Influenza Type A RNA (NEGATIVE) RSV RNA (INAAT) (NEGATIVE) Influenza Type B RNA (NEGATIVE) SARS-CoV-2 RNA ([place]) (NEGATIVE) 01/07/21 01/07/21 01/07/21 Range/Units 06:39 07:40 10:30 WBC (4.5-11.0) K/uL RBC (4.30-5.90) M/uL Hgb (12.0-15.0) g/dL Hct (40.0-54.0) % MCV (80-98) fL MCH (27-31) pg MCHC (32-36) % Plt Count (150-400) K/uL Neut % (Auto) Lymph % (Auto) [place] % (Auto) Eos % (Auto) Baso % (Auto) Add Manual Diff Neutrophils % (Manual) (36-66) % Band Neutrophils % (5-11) % Lymphocytes % (Manual) (24-44) % Monocytes % (Manual) (2-6) % Eosinophils % (Manual) (2-4) % Atypical Lymphocytes PT (9.5-12.0) sec INR (0.80-1.20) Sodium 129 L 130 L (140-148) mmol/L Potassium 3.5 L 3.8 3.7 (3.6-5.2) mmol/L Chloride 94 L 96 L (100-108) mmol/L Carbon Dioxide 25 25 (21-32) mmol/L Anion Gap 13.5 12.7 (5.0-14.0) mmol/L BUN 25 H 19 H (7-18) mg/dL Creatinine 1.3 1.2 (0.8-1.3) mg/dL Est Cr Clr Drug Dosing 56.02 60.69 mL/min Estimated GFR (MDRD) 57 L > 60 (>60) Glucose 247 H 234 H (74-106) mg/dL Hemoglobin A1c (4.5-6.2) % Lactic Acid (0.4-2.0) mmol/L Calcium 7.4 L 7.5 L (8.5-10.1) mg/dL Phosphorus 0.8 L (2.5-4.9) mg/dL Magnesium 2.5 H (1.8-2.4) mg/dL Total Bilirubin (0.2-1.0) mg/dL AST (15-37) U/L ALT (12-78) U/L Alkaline Phosphatase (46-116) U/L Troponin I (0.000-0.056) ng/mL C-Reactive Protein (0.0-0.3) mg/dL Total Protein (6.4-8.2) g/dL Albumin (3.4-5.0) g/dL Globulin (2.3-3.5) g/dL Albumin/Globulin Ratio (1.2-2.2) Lipase (73-393) U/L Procalcitonin ng/mL Urine Color (YELLOW) Urine Appearance (CLEAR) Urine pH (5.0-8.0) Ur Specific [place] (1.008-1.030) Urine Protein (NEGATIVE) mg/dL Urine Glucose (UA) (NEGATIVE) mg/dL Urine Ketones (NEGATIVE) mg/dL Urine Occult Blood (NEGATIVE) Urine Nitrite (NEGATIVE) Urine Bilirubin (NEGATIVE) Urine Urobilinogen (0.2-1.0) EU/dL Ur Leukocyte Esterase (NEGATIVE) Urine RBC (0-5) Urine WBC (0-5) Ur Epithelial Cells Amorphous Sediment Urine Bacteria Urine Mucus Ketones (NEGATIVE) Influenza Type A RNA (NEGATIVE) RSV RNA (INAAT) (NEGATIVE) Influenza Type B RNA (NEGATIVE) SARS-CoV-2 RNA ([place]) (NEGATIVE) Med Orders - Current: Current Medications Acetaminophen (Acetaminophen 325 Mg Tab) 650 mg PO Q4H PRN PRN Reason: Pain (Mild 1-3)/fever Last Admin: 01/07/21 09:05 Dose: 650 mg Documented by: Albuterol (Albuterol 0.083% 2.5 Mg/3 Ml Neb Soln) 2.5 mg NEB Q4H PRN PRN Reason: Shortness Of Breath/wheezing Clotrimazole (Clotrimazole 10 Mg Keshav) 10 mg PO 5XDAY [facility] Last Admin: 01/07/21 09:48 Dose: 10 mg Documented by: Dextrose (Glucose Gel 15 Gm In 37.5 Gm Tube) 15 gm PO ONETIME PRN PRN Reason: Hypoglycemia Dextrose/Water (50% Dextrose In Water 50 Ml Syringe) 50 ml IVPUSH ONETIME PRN PRN Reason: Blood Glucose Dextrose/Water (50% Dextrose In Water 50 Ml Syringe) 50 ml IV ONETIME PRN PRN Reason: Hypoglycemia Potassium Chloride 20 meq/ (Premix) 100 mls @ 50 mls/hr IV Q2H PRN PRN Reason: Hypokalemia Potassium Chloride 20 meq/ (Premix) 100 mls @ 50 mls/hr IV Q2H PRN PRN Reason: Hypokalemia Magnesium Sulfate (Magnesium Sulfate In Water 2 Gm/50 Ml) 2 gm in 50 mls @ 25 mls/hr IV ONETIME PRN PRN Reason: low magnesium Norepinephrine Bitartrate 4 mg (/ Dextrose/Water) 250 mls @ 7.5 mls/hr IV TITRATE [facility]; Protocol Last Titration: 01/07/21 10:22 Dose: 5 mcg/min, 18.75 mls/hr Documented by: Vancomycin HCl 1 gm/ Sodium (Chloride) 250 mls @ 166.667 mls/hr IV Q12H [facility] Last Admin: 01/07/21 09:03 Dose: 166.667 mls/hr Documented by: Meropenem 1 gm/ Sodium (Chloride) 100 mls @ 200 mls/hr IV Q8H [facility] Last Admin: 01/07/21 08:18 Dose: 200 mls/hr Documented by: Sodium Phosphate 60 mmole/ (Sodium Chloride) 270 mls @ 60 mls/hr IV ONETIME PRN PRN Reason: Low phophorus Last Admin: 01/07/21 09:00 Dose: 60 mls/hr Documented by: Insulin Glargine (Insulin Glargine,Human Rec. Analog 100 Units/Ml 3 Ml Pen) 16 units SUBCUT BEDTIME [facility] Insulin Glargine (Insulin Glargine,Human Rec. Analog 100 Units/Ml 3 Ml Pen) 16 units SUBCUT ONETIME ONE Stop: 01/07/21 11:19 Insulin Human Lispro (Insulin Lispro 100 Unit/Ml 3 Ml Kwikpen) 0 unit SUBCUT QIDACANDBED [facility]; Protocol Metformin HCl (Metformin 500 Mg Tab) 500 mg PO BIDMEALS [facility] Nicotine (Nicotine 21 Mg/24 Hr Patch) 21 mg TRDERM DAILY [facility] Last Admin: 01/07/21 08:20 Dose: 21 mg Documented by: Nicotine (Nicotine 7 Mg/24 Hr Patch) 7 mg TRDERM DAILY [facility] Last Admin: 01/07/21 08:22 Dose: 7 mg Documented by: Nicotine Polacrilex (Nicotine Polacrilex 2 Mg Gum) 4 mg CHEW Q1H PRN PRN Reason: Other Ondansetron HCl (Ondansetron 4 Mg/2 Ml Sdv) 4 mg IV Q4H PRN PRN Reason: Nausea/Vomiting Last Admin: 01/07/21 09:24 Dose: 4 mg Documented by: Polyethylene Glycol (Polyethylene Glycol 3350 Powder 17 Gm Packet) 17 gm PO DAILY PRN PRN Reason: Constipation Potassium Chloride (Potassium Chloride 10% 20 Meq/15 Ml Soln 15 Ml Ud Cup) 20 meq PO NOW PRN PRN Reason: Hypokalemia Last Admin: 01/07/21 09:40 Dose: 20 meq Documented by: Potassium Chloride (Potassium Chloride 10% 20 Meq/15 Ml Soln 15 Ml Ud Cup) 40 meq PO NOW PRN PRN Reason: Hypokalemia Potassium Chloride (Potassium Chloride 10% 20 Meq/15 Ml Soln 15 Ml Ud Cup) 40 meq PO Q2H PRN PRN Reason: Hypokalemia Sodium Chloride (Sodium Chloride 0.9% 10 Ml Syringe) 10 ml FLUSH ASDIRECTED PRN PRN Reason: Keep Vein Open Discontinued Medications Lactated Ringer's (Ringers, Lactated) 1,000 mls @ 999 mls/hr IV ASDIRECTED [facility] Last Admin: 01/06/21 17:06 Dose: 999 mls/hr Documented by: Levofloxacin/Dextrose 500 mg/ (Premix) 100 mls @ 100 mls/hr IV ONETIME ONE Stop: 01/06/21 17:48 Last Admin: 01/06/21 17:06 Dose: 100 mls/hr Documented by: Lactated Ringer's (Ringers, Lactated) 1,000 mls @ 999 mls/hr IV BOLUS ONE Stop: 01/06/21 19:03 Last Admin: 01/06/21 18:05 Dose: 999 mls/hr Documented by: Sodium Chloride (Normal Saline) 2,000 mls @ 500 mls/hr IV .CONTINUOUS PRN PRN Reason: Blood Glucose Last Admin: 01/06/21 19:00 Dose: 500 mls/hr Documented by: Dextrose/Sodium Chloride (Dextrose 5%-1/2 Ns) 1,000 mls @ 150 mls/hr IV .CONTINUOUS PRN PRN Reason: Blood Glucose Last Admin: 01/07/21 07:45 Dose: 150 mls/hr Documented by: Potassium Chloride 20 meq/ (Premix) 100 mls @ 50 mls/hr IV ONETIME ONE Stop: 01/06/21 20:21 Last Admin: 01/06/21 20:21 Dose: 50 mls/hr Documented by: Sodium Phosphate 60 mmole/ (Sodium Chloride) 270 mls @ 60 mls/hr IV ONETIME PRN PRN Reason: Low phophorus Insulin Regular in 0.9 % NACL (Myxredlin In Ns 100 Unit/100 Ml) 100 mls @ 6.169 mls/hr IV ASDIRECTED [facility]; Protocol Last Infusion: 01/07/21 03:09 Dose: 0.05 units/kg/hr, 3 mls/hr Documented by: Meropenem 1 gm/ Sodium (Chloride) 100 mls @ 200 mls/hr IV Q12H [place] Last Admin: 01/06/21 20:21 Dose: 200 mls/hr Documented by: Vancomycin HCl 1.5 gm/ Sodium (Chloride) 250 mls @ 166.667 mls/hr IV ONETIME ONE Stop: 01/06/21 22:29 Last Admin: 01/06/21 21:12 Dose: 166.667 mls/hr Documented by: Vancomycin HCl 1 gm/ Sodium (Chloride) 250 mls @ 166.667 mls/hr IV Q24H [facility] Insulin Human Regular (Insulin Regular, Human 100 Units/Ml 3 Ml Vial) 6 unit IVPUSH ONETIME ONE Stop: 01/06/21 18:30 Last Admin: 01/06/21 18:57 Dose: 6 units Documented by: Lidocaine HCl (Lidocaine 1% 5 Ml Sdv) 2 ml INJECT ONETIME ONE Stop: 01/06/21 19:57 Last Admin: 01/06/21 20:21 Dose: 2 ml Documented by: Vancomycin HCl (Vancomycin 1 Gm Sdv) 1 gm IV .PHARMACY TO DOSE [place] Stop: 01/07/21 07:30 - Exam Quality Assessment: DVT Prophylaxis General: Alert, Oriented, Cooperative, Mild Distress Lungs: Clear to Auscultation, Normal Respiratory Effort Cardiovascular: Regular Rate, Regular Rhythm, No Murmurs GI/Abdominal Exam: Soft, Non-Tender, No Organomegaly, No Distention Extremities: Non-Tender, No Pedal Edema - Patient Data Lab Results Last 24 hrs: Laboratory Results - last 24 hr 01/06/21 01/06/21 01/06/21 Range/Units 16:50 17:00 17:03 WBC (4.5-11.0) K/uL RBC (4.30-5.90) M/uL Hgb (12.0-15.0) g/dL Hct (40.0-54.0) % MCV (80-98) fL MCH (27-31) pg MCHC (32-36) % Plt Count (150-400) K/uL Neut % (Auto) Lymph % (Auto) [place] % (Auto) Eos % (Auto) Baso % (Auto) Add Manual Diff Neutrophils % (Manual) (36-66) % Band Neutrophils % (5-11) % Lymphocytes % (Manual) (24-44) % Monocytes % (Manual) (2-6) % Eosinophils % (Manual) (2-4) % Atypical Lymphocytes PT 11.8 (9.5-12.0) sec INR 1.08 (0.80-1.20) Sodium (140-148) mmol/L Potassium (3.6-5.2) mmol/L Chloride (100-108) mmol/L Carbon Dioxide (21-32) mmol/L Anion Gap (5.0-14.0) mmol/L BUN (7-18) mg/dL Creatinine (0.8-1.3) mg/dL Est Cr Clr Drug Dosing mL/min Estimated GFR (MDRD) (>60) Glucose (74-106) mg/dL Hemoglobin A1c 11.9 H (4.5-6.2) % Lactic Acid (0.4-2.0) mmol/L Calcium (8.5-10.1) mg/dL Phosphorus (2.5-4.9) mg/dL Magnesium (1.8-2.4) mg/dL Total Bilirubin (0.2-1.0) mg/dL AST (15-37) U/L ALT (12-78) U/L Alkaline Phosphatase (46-116) U/L Troponin I (0.000-0.056) ng/mL C-Reactive Protein (0.0-0.3) mg/dL Total Protein (6.4-8.2) g/dL Albumin (3.4-5.0) g/dL Globulin (2.3-3.5) g/dL Albumin/Globulin Ratio (1.2-2.2) Lipase (73-393) U/L Procalcitonin 1.23 ng/mL Urine Color (YELLOW) Urine Appearance (CLEAR) Urine pH (5.0-8.0) Ur Specific [place] (1.008-1.030) Urine Protein (NEGATIVE) mg/dL Urine Glucose (UA) (NEGATIVE) mg/dL Urine Ketones (NEGATIVE) mg/dL Urine Occult Blood (NEGATIVE) Urine Nitrite (NEGATIVE) Urine Bilirubin (NEGATIVE) Urine Urobilinogen (0.2-1.0) EU/dL Ur Leukocyte Esterase (NEGATIVE) Urine RBC (0-5) Urine WBC (0-5) Ur Epithelial Cells Amorphous Sediment Urine Bacteria Urine Mucus Ketones (NEGATIVE) Influenza Type A RNA (NEGATIVE) RSV RNA (INAAT) (NEGATIVE) Influenza Type B RNA (NEGATIVE) SARS-CoV-2 RNA (KULWANT) (NEGATIVE) 01/06/21 01/06/21 01/06/21 Range/Units 17:03 17:03 17:03 WBC 17.3 H (4.5-11.0) K/uL RBC 4.59 (4.30-5.90) M/uL Hgb 14.6 (12.0-15.0) g/dL Hct 42.2 (40.0-54.0) % MCV 92 (80-98) fL MCH 32 H (27-31) pg MCHC 35 (32-36) % Plt Count 191 (150-400) K/uL Neut % (Auto) [employer] Lymph % (Auto) [employer] [place] % (Auto) [employer] Eos % (Auto) [employer] Baso % (Auto) [employer] Add Manual Diff Yes Neutrophils % (Manual) 72 H (36-66) % Band Neutrophils % 8 (5-11) % Lymphocytes % (Manual) 10 L (24-44) % Monocytes % (Manual) 10 H (2-6) % Eosinophils % (Manual) (2-4) % Atypical Lymphocytes Rare PT (9.5-12.0) sec INR (0.80-1.20) Sodium 118 L* (140-148) mmol/L Potassium 4.5 (3.6-5.2) mmol/L Chloride 77 L (100-108) mmol/L Carbon Dioxide 11 L (21-32) mmol/L Anion Gap 34.5 H (5.0-14.0) mmol/L BUN 48 H (7-18) mg/dL Creatinine 2.0 H (0.8-1.3) mg/dL Est Cr Clr Drug Dosing 33.59 mL/min Estimated GFR (MDRD) 35 L (>60) Glucose 628 H* (74-106) mg/dL Hemoglobin A1c (4.5-6.2) % Lactic Acid (0.4-2.0) mmol/L Calcium 8.5 (8.5-10.1) mg/dL Phosphorus (2.5-4.9) mg/dL Magnesium (1.8-2.4) mg/dL Total Bilirubin 0.9 (0.2-1.0) mg/dL AST 47 H (15-37) U/L ALT 111 H (12-78) U/L Alkaline Phosphatase 161 H (46-116) U/L Troponin I < 0.017 (0.000-0.056) ng/mL C-Reactive Protein 22.50 H (0.0-0.3) mg/dL Total Protein 6.7 (6.4-8.2) g/dL Albumin 2.5 L (3.4-5.0) g/dL Globulin 4.2 H (2.3-3.5) g/dL Albumin/Globulin Ratio 0.6 L (1.2-2.2) Lipase 350 (73-393) U/L Procalcitonin ng/mL Urine Color (YELLOW) Urine Appearance (CLEAR) Urine pH (5.0-8.0) Ur Specific [place] (1.008-1.030) Urine Protein (NEGATIVE) mg/dL Urine Glucose (UA) (NEGATIVE) mg/dL Urine Ketones (NEGATIVE) mg/dL Urine Occult Blood (NEGATIVE) Urine Nitrite (NEGATIVE) Urine Bilirubin (NEGATIVE) Urine Urobilinogen (0.2-1.0) EU/dL Ur Leukocyte Esterase (NEGATIVE) Urine RBC (0-5) Urine WBC (0-5) Ur Epithelial Cells Amorphous Sediment Urine Bacteria Urine Mucus Ketones (NEGATIVE) Influenza Type A RNA (NEGATIVE) RSV RNA (INAAT) (NEGATIVE) Influenza Type B RNA (NEGATIVE) SARS-CoV-2 RNA ([facility]) (NEGATIVE) 01/06/21 01/06/21 01/06/21 Range/Units 17:03 18:07 18:50 WBC (4.5-11.0) K/uL RBC (4.30-5.90) M/uL Hgb (12.0-15.0) g/dL Hct (40.0-54.0) % MCV (80-98) fL MCH (27-31) pg MCHC (32-36) % Plt Count (150-400) K/uL Neut % (Auto) Lymph % (Auto) [place] % (Auto) Eos % (Auto) Baso % (Auto) Add Manual Diff Neutrophils % (Manual) (36-66) % Band Neutrophils % (5-11) % Lymphocytes % (Manual) (24-44) % Monocytes % (Manual) (2-6) % Eosinophils % (Manual) (2-4) % Atypical Lymphocytes PT (9.5-12.0) sec INR (0.80-1.20) Sodium 118 L* (140-148) mmol/L Potassium 4.6 (3.6-5.2) mmol/L Chloride 79 L (100-108) mmol/L Carbon Dioxide 13 L (21-32) mmol/L Anion Gap 30.6 H (5.0-14.0) mmol/L BUN 46 H (7-18) mg/dL Creatinine 1.8 H (0.8-1.3) mg/dL Est Cr Clr Drug Dosing 37.32 mL/min Estimated GFR (MDRD) 39 L (>60) Glucose 610 H* (74-106) mg/dL Hemoglobin A1c (4.5-6.2) % Lactic Acid 2.1 H (0.4-2.0) mmol/L Calcium 8.3 L (8.5-10.1) mg/dL Phosphorus 4.1 (2.5-4.9) mg/dL Magnesium 3.5 H (1.8-2.4) mg/dL Total Bilirubin (0.2-1.0) mg/dL AST (15-37) U/L ALT (12-78) U/L Alkaline Phosphatase (46-116) U/L Troponin I (0.000-0.056) ng/mL C-Reactive Protein (0.0-0.3) mg/dL Total Protein (6.4-8.2) g/dL Albumin (3.4-5.0) g/dL Globulin (2.3-3.5) g/dL Albumin/Globulin Ratio (1.2-2.2) Lipase (73-393) U/L Procalcitonin ng/mL Urine Color (YELLOW) Urine Appearance (CLEAR) Urine pH (5.0-8.0) Ur Specific [place] (1.008-1.030) Urine Protein (NEGATIVE) mg/dL Urine Glucose (UA) (NEGATIVE) mg/dL Urine Ketones (NEGATIVE) mg/dL Urine Occult Blood (NEGATIVE) Urine Nitrite (NEGATIVE) Urine Bilirubin (NEGATIVE) Urine Urobilinogen (0.2-1.0) EU/dL Ur Leukocyte Esterase (NEGATIVE) Urine RBC (0-5) Urine WBC (0-5) Ur Epithelial Cells Amorphous Sediment Urine Bacteria Urine Mucus Ketones (NEGATIVE) Influenza Type A RNA Negative (NEGATIVE) RSV RNA (INAAT) Negative (NEGATIVE) Influenza Type B RNA Negative (NEGATIVE) SARS-CoV-2 RNA ([facility]) Negative (NEGATIVE) 01/06/21 01/06/21 01/06/21 Range/Units 18:56 20:37 20:37 WBC (4.5-11.0) K/uL RBC (4.30-5.90) M/uL Hgb (12.0-15.0) g/dL Hct (40.0-54.0) % MCV (80-98) fL MCH (27-31) pg MCHC (32-36) % Plt Count (150-400) K/uL Neut % (Auto) Lymph % (Auto) [place] % (Auto) Eos % (Auto) Baso % (Auto) Add Manual Diff Neutrophils % (Manual) (36-66) % Band Neutrophils % (5-11) % Lymphocytes % (Manual) (24-44) % Monocytes % (Manual) (2-6) % Eosinophils % (Manual) (2-4) % Atypical Lymphocytes PT (9.5-12.0) sec INR (0.80-1.20) Sodium (140-148) mmol/L Potassium 4.0 (3.6-5.2) mmol/L Chloride (100-108) mmol/L Carbon Dioxide (21-32) mmol/L Anion Gap (5.0-14.0) mmol/L BUN (7-18) mg/dL Creatinine (0.8-1.3) mg/dL Est Cr Clr Drug Dosing mL/min Estimated GFR (MDRD) (>60) Glucose (74-106) mg/dL Hemoglobin A1c (4.5-6.2) % Lactic Acid 2.1 H (0.4-2.0) mmol/L Calcium (8.5-10.1) mg/dL Phosphorus (2.5-4.9) mg/dL Magnesium (1.8-2.4) mg/dL Total Bilirubin (0.2-1.0) mg/dL AST (15-37) U/L ALT (12-78) U/L Alkaline Phosphatase (46-116) U/L Troponin I (0.000-0.056) ng/mL C-Reactive Protein (0.0-0.3) mg/dL Total Protein (6.4-8.2) g/dL Albumin (3.4-5.0) g/dL Globulin (2.3-3.5) g/dL Albumin/Globulin Ratio (1.2-2.2) Lipase (73-393) U/L Procalcitonin ng/mL Urine Color (YELLOW) Urine Appearance (CLEAR) Urine pH (5.0-8.0) Ur Specific [place] (1.008-1.030) Urine Protein (NEGATIVE) mg/dL Urine Glucose (UA) (NEGATIVE) mg/dL Urine Ketones (NEGATIVE) mg/dL Urine Occult Blood (NEGATIVE) Urine Nitrite (NEGATIVE) Urine Bilirubin (NEGATIVE) Urine Urobilinogen (0.2-1.0) EU/dL Ur Leukocyte Esterase (NEGATIVE) Urine RBC (0-5) Urine WBC (0-5) Ur Epithelial Cells Amorphous Sediment Urine Bacteria Urine Mucus Ketones Moderate H (NEGATIVE) Influenza Type A RNA (NEGATIVE) RSV RNA (INAAT) (NEGATIVE) Influenza Type B RNA (NEGATIVE) SARS-CoV-2 RNA ([place]) (NEGATIVE) 01/06/21 01/07/21 01/07/21 Range/Units 22:35 00:30 02:35 WBC (4.5-11.0) K/uL RBC (4.30-5.90) M/uL Hgb (12.0-15.0) g/dL Hct (40.0-54.0) % MCV (80-98) fL MCH (27-31) pg MCHC (32-36) % Plt Count (150-400) K/uL Neut % (Auto) Lymph % (Auto) [place] % (Auto) Eos % (Auto) Baso % (Auto) Add Manual Diff Neutrophils % (Manual) (36-66) % Band Neutrophils % (5-11) % Lymphocytes % (Manual) (24-44) % Monocytes % (Manual) (2-6) % Eosinophils % (Manual) (2-4) % Atypical Lymphocytes PT (9.5-12.0) sec INR (0.80-1.20) Sodium 126 L (140-148) mmol/L Potassium 3.9 4.0 (3.6-5.2) mmol/L Chloride 88 L (100-108) mmol/L Carbon Dioxide 21 (21-32) mmol/L Anion Gap 20.9 H (5.0-14.0) mmol/L BUN 43 H (7-18) mg/dL Creatinine 1.7 H (0.8-1.3) mg/dL Est Cr Clr Drug Dosing 42.84 mL/min Estimated GFR (MDRD) 42 L (>60) Glucose 297 H (74-106) mg/dL Hemoglobin A1c (4.5-6.2) % Lactic Acid (0.4-2.0) mmol/L Calcium 7.7 L (8.5-10.1) mg/dL Phosphorus 1.5 L (2.5-4.9) mg/dL Magnesium 2.9 H (1.8-2.4) mg/dL Total Bilirubin (0.2-1.0) mg/dL AST (15-37) U/L ALT (12-78) U/L Alkaline Phosphatase (46-116) U/L Troponin I (0.000-0.056) ng/mL C-Reactive Protein (0.0-0.3) mg/dL Total Protein (6.4-8.2) g/dL Albumin (3.4-5.0) g/dL Globulin (2.3-3.5) g/dL Albumin/Globulin Ratio (1.2-2.2) Lipase (73-393) U/L Procalcitonin ng/mL Urine Color Yellow (YELLOW) Urine Appearance Clear (CLEAR) Urine pH 5.5 (5.0-8.0) Ur Specific [place] 1.015 (1.008-1.030) Urine Protein Negative (NEGATIVE) mg/dL Urine Glucose (UA) 500 H (NEGATIVE) mg/dL Urine Ketones 40 H (NEGATIVE) mg/dL Urine Occult Blood Negative (NEGATIVE) Urine Nitrite Negative (NEGATIVE) Urine Bilirubin Small H (NEGATIVE) Urine Urobilinogen 0.2 (0.2-1.0) EU/dL Ur Leukocyte Esterase Negative (NEGATIVE) Urine RBC 0-5 (0-5) Urine WBC 0-5 (0-5) Ur Epithelial Cells Few Amorphous Sediment Not seen Urine Bacteria Few Urine Mucus Not seen Ketones (NEGATIVE) Influenza Type A RNA (NEGATIVE) RSV RNA (INAAT) (NEGATIVE) Influenza Type B RNA (NEGATIVE) SARS-CoV-2 RNA ([facility]) (NEGATIVE) 01/07/21 01/07/21 01/07/21 Range/Units 02:35 04:44 04:44 WBC 14.9 H (4.5-11.0) K/uL RBC 3.68 L (4.30-5.90) M/uL Hgb 11.9 L D (12.0-15.0) g/dL Hct 32.9 L (40.0-54.0) % MCV 89 (80-98) fL MCH 32 H (27-31) pg MCHC 36 (32-36) % Plt Count 136 L (150-400) K/uL Neut % (Auto) Lymph % (Auto) [place] % (Auto) Eos % (Auto) Baso % (Auto) Add Manual Diff Yes Neutrophils % (Manual) 64 (36-66) % Band Neutrophils % 12 H (5-11) % Lymphocytes % (Manual) 12 L (24-44) % Monocytes % (Manual) 10 H (2-6) % Eosinophils % (Manual) 2 (2-4) % Atypical Lymphocytes PT (9.5-12.0) sec INR (0.80-1.20) Sodium 128 L (140-148) mmol/L Potassium 4.0 3.7 (3.6-5.2) mmol/L Chloride 93 L (100-108) mmol/L Carbon Dioxide 22 (21-32) mmol/L Anion Gap 17.0 H (5.0-14.0) mmol/L BUN 33 H (7-18) mg/dL Creatinine 1.4 H (0.8-1.3) mg/dL Est Cr Clr Drug Dosing 52.02 mL/min Estimated GFR (MDRD) 53 L (>60) Glucose 254 H (74-106) mg/dL Hemoglobin A1c (4.5-6.2) % Lactic Acid (0.4-2.0) mmol/L Calcium 7.7 L (8.5-10.1) mg/dL Phosphorus (2.5-4.9) mg/dL Magnesium (1.8-2.4) mg/dL Total Bilirubin (0.2-1.0) mg/dL AST (15-37) U/L ALT (12-78) U/L Alkaline Phosphatase (46-116) U/L Troponin I (0.000-0.056) ng/mL C-Reactive Protein (0.0-0.3) mg/dL Total Protein (6.4-8.2) g/dL Albumin (3.4-5.0) g/dL Globulin (2.3-3.5) g/dL Albumin/Globulin Ratio (1.2-2.2) Lipase (73-393) U/L Procalcitonin ng/mL Urine Color (YELLOW) Urine Appearance (CLEAR) Urine pH (5.0-8.0) Ur Specific [place] (1.008-1.030) Urine Protein (NEGATIVE) mg/dL Urine Glucose (UA) (NEGATIVE) mg/dL Urine Ketones (NEGATIVE) mg/dL Urine Occult Blood (NEGATIVE) Urine Nitrite (NEGATIVE) Urine Bilirubin (NEGATIVE) Urine Urobilinogen (0.2-1.0) EU/dL Ur Leukocyte Esterase (NEGATIVE) Urine RBC (0-5) Urine WBC (0-5) Ur Epithelial Cells Amorphous Sediment Urine Bacteria Urine Mucus Ketones (NEGATIVE) Influenza Type A RNA (NEGATIVE) RSV RNA (INAAT) (NEGATIVE) Influenza Type B RNA (NEGATIVE) SARS-CoV-2 RNA ([place]) (NEGATIVE) 01/07/21 01/07/21 01/07/21 Range/Units 06:39 07:40 10:30 WBC (4.5-11.0) K/uL RBC (4.30-5.90) M/uL Hgb (12.0-15.0) g/dL Hct (40.0-54.0) % MCV (80-98) fL MCH (27-31) pg MCHC (32-36) % Plt Count (150-400) K/uL Neut % (Auto) Lymph % (Auto) [place] % (Auto) Eos % (Auto) Baso % (Auto) Add Manual Diff Neutrophils % (Manual) (36-66) % Band Neutrophils % (5-11) % Lymphocytes % (Manual) (24-44) % Monocytes % (Manual) (2-6) % Eosinophils % (Manual) (2-4) % Atypical Lymphocytes PT (9.5-12.0) sec INR (0.80-1.20) Sodium 129 L 130 L (140-148) mmol/L Potassium 3.5 L 3.8 3.7 (3.6-5.2) mmol/L Chloride 94 L 96 L (100-108) mmol/L Carbon Dioxide 25 25 (21-32) mmol/L Anion Gap 13.5 12.7 (5.0-14.0) mmol/L BUN 25 H 19 H (7-18) mg/dL Creatinine 1.3 1.2 (0.8-1.3) mg/dL Est Cr Clr Drug Dosing 56.02 60.69 mL/min Estimated GFR (MDRD) 57 L > 60 (>60) Glucose 247 H 234 H (74-106) mg/dL Hemoglobin A1c (4.5-6.2) % Lactic Acid (0.4-2.0) mmol/L Calcium 7.4 L 7.5 L (8.5-10.1) mg/dL Phosphorus 0.8 L (2.5-4.9) mg/dL Magnesium 2.5 H (1.8-2.4) mg/dL Total Bilirubin (0.2-1.0) mg/dL AST (15-37) U/L ALT (12-78) U/L Alkaline Phosphatase (46-116) U/L Troponin I (0.000-0.056) ng/mL C-Reactive Protein (0.0-0.3) mg/dL Total Protein (6.4-8.2) g/dL Albumin (3.4-5.0) g/dL Globulin (2.3-3.5) g/dL Albumin/Globulin Ratio (1.2-2.2) Lipase (73-393) U/L Procalcitonin ng/mL Urine Color (YELLOW) Urine Appearance (CLEAR) Urine pH (5.0-8.0) Ur Specific [place] (1.008-1.030) Urine Protein (NEGATIVE) mg/dL Urine Glucose (UA) (NEGATIVE) mg/dL Urine Ketones (NEGATIVE) mg/dL Urine Occult Blood (NEGATIVE) Urine Nitrite (NEGATIVE) Urine Bilirubin (NEGATIVE) Urine Urobilinogen (0.2-1.0) EU/dL Ur Leukocyte Esterase (NEGATIVE) Urine RBC (0-5) Urine WBC (0-5) Ur Epithelial Cells Amorphous Sediment Urine Bacteria Urine Mucus Ketones (NEGATIVE) Influenza Type A RNA (NEGATIVE) RSV RNA (INAAT) (NEGATIVE) Influenza Type B RNA (NEGATIVE) SARS-CoV-2 RNA ([place]) (NEGATIVE) Result Diagrams: 01/07/21 04:44 01/07/21 10:30 Sepsis Event Note - Evaluation Sepsis Screening Result: No Definite Risk - Focused Exam Vital Signs: Vital Signs Temp Pulse Resp BP Pulse Ox 01/07/21 10:00 89 14 118/70 94 L 01/07/21 09:00 97 20 110/67 93 L 01/07/21 08:00 95 18 105/67 92 L 01/07/21 07:00 98.6 F 97 17 102/50 L 93 L 01/07/21 06:00 21 H 114/58 L 92 L 01/07/21 05:00 21 H 101/46 L 90 L 01/07/21 04:00 20 96/56 L 91 L 01/07/21 03:00 19 101/52 L 94 L 01/07/21 02:00 98.3 F 18 101/54 L 91 L 01/07/21 01:00 16 93/48 L 95 01/07/21 00:00 14 92/50 L 93 L - Problem List Review Problem List Initiated/Reviewed/Updated: Yes - My Orders Last 24 Hours: My Active Orders 01/06/21 Dinner Consistent Carbohydrate Diet [DIET] 01/06/21 18:22 Communication Order [RC] ASDIRECTED Diabetes Education [RC] Click to Edit Notify Provider [RC] PRN Dextrose 50% in Water 50 ml IVPUSH ONETIME PRN Magnesium Sulfate/Water [Magnesium Sulfate in Water 2 GM/50 ML] 2 gm in 50 ml IV ONETIME Potassium Chloride [KCL in Water 20 MEQ/100 ML] 20 meq Premix Bag 1 bag IV Q2H Potassium Chloride [KCL in Water 20 MEQ/100 ML] 20 meq Premix Bag 1 bag IV Q2H Potassium Chloride [Potassium Chloride Solution] 20 meq PO NOW PRN Potassium Chloride [Potassium Chloride Solution] 40 meq PO NOW PRN Potassium Chloride [Potassium Chloride Solution] 40 meq PO Q2H PRN 01/06/21 18:23 Notify Provider Laboratory Res [RC] ASDIRECTED 01/06/21 18:24 Notify Provider Laboratory Res [RC] ASDIRECTED Notify Provider Laboratory Res [RC] ASDIRECTED 01/06/21 18:34 Resuscitation Status Routine 01/06/21 19:09 Acetaminophen [TylenoL] 650 mg PO Q4H PRN Albuterol [Proventil Neb Soln] 2.5 mg NEB Q4H PRN Ondansetron [Zofran] 4 mg IV Q4H PRN Sodium Chloride 0.9% [Saline Flush] 10 ml FLUSH ASDIRECTED PRN polyethylene glycoL 3350 [MiraLAX] 17 gm PO DAILY PRN 01/06/21 19:09 Patient Status [ADT] Routine Ambulate [RC] QID Cardiac Monitoring [RC] .As Directed Height and Weight [RC] DAILY Intake and Output [RC] QSHIFT Notify Provider Vital Signs [RC] ASDIRECTED Oxygen Therapy [RC] PRN Peripheral IV Care [RC] . DIRECTED RT Aerosol Therapy [RC] ASDIRECTED Up With Assistance [RC] ASDIRECTED Up to Chair [RC] QID VTE/DVT Education [RC] Per Unit Routine Peripheral IV Insertion Adult [OM.PC] Routine Sequential Compression Device [OM.PC] Per Unit Routine 01/06/21 19:17 Nicotine Polacrilex [Nicorelief] 4 mg CHEW Q1H PRN 01/06/21 19:30 Nicotine [Habitrol] 21 mg TRDERM DAILY Nicotine [Habitrol] 7 mg TRDERM DAILY 01/06/21 22:00 Clotrimazole [Mycelex] 10 mg PO 5XDAY 01/06/21 23:30 Norepinephrine [Levophed] 4 mg Dextrose 5% in Water 246 ml IV TITRATE 01/07/21 08:00 Meropenem [Merrem] 1 gm Sodium Chloride 0.9% [Normal Saline] 100 ml IV Q8H 01/07/21 08:54 Sodium Phosphate 60 mmole Sodium Chloride 0.9% [Normal Saline] 250 ml IV ONETIME 01/07/21 09:30 Vancomycin 1 gm Sodium Chloride 0.9% [Normal Saline] 250 ml IV Q12H 01/07/21 11:15 Communication Order [RC] STAT Diabetes Education [RC] Click to Edit Notify Provider [RC] PRN Dextrose 50% in Water 50 ml IV ONETIME PRN Dextrose [Glutose 15] 15 gm PO ONETIME PRN 01/07/21 11:18 Insulin Glarg,Human.Rec.Analog [LantUS Solostar] 16 units SUBCUT ONETIME ONE 01/07/21 17:00 BASIC METABOLIC PANEL,BMP [CHEM] Stat MAGNESIUM [CHEM] Stat Insulin Lispro [HumaLOG] See Protocol SUBCUT QIDACANDBED metFORMIN [Glucophage] 500 mg PO BIDMEALS 01/07/21 21:00 Insulin Glarg,Human.Rec.Analog [LantUS Solostar] 16 units SUBCUT BEDTIME 01/08/21 05:00 BASIC METABOLIC PANEL,BMP [CHEM] Timed CBC WITH AUTO DIFF [HEME] Timed MAGNESIUM [CHEM] Timed 01/08/21 07:30 GLUCOSE POC LAB TO COLLECT JPM [POC] QIDACANDBED 01/08/21 11:30 GLUCOSE POC LAB TO COLLECT JPM [POC] QIDACANDBED 01/08/21 16:30 GLUCOSE POC LAB TO COLLECT JPM [POC] QIDACANDBED 01/08/21 21:00 GLUCOSE POC LAB TO COLLECT JPM [POC] QIDACANDBED 01/09/21 07:30 GLUCOSE POC LAB TO COLLECT JPM [POC] QIDACANDBED 01/09/21 11:30 GLUCOSE POC LAB TO COLLECT JPM [POC] QIDACANDBED 01/09/21 16:30 GLUCOSE POC LAB TO COLLECT JPM [POC] QIDACANDBED 01/09/21 21:00 GLUCOSE POC LAB TO COLLECT JPM [POC] QIDACANDBED 01/10/21 07:30 GLUCOSE POC LAB TO COLLECT JPM [POC] QIDACANDBED 01/10/21 11:30 GLUCOSE POC LAB TO COLLECT JPM [POC] QIDACANDBED 01/10/21 16:30 GLUCOSE POC LAB TO COLLECT JPM [POC] QIDACANDBED 01/10/21 21:00 GLUCOSE POC LAB TO COLLECT JPM [POC] QIDACANDBED 01/11/21 07:30 GLUCOSE POC LAB TO COLLECT JPM [POC] QIDACANDBED 01/11/21 11:30 GLUCOSE POC LAB TO COLLECT JPM [POC] QIDACANDBED 01/11/21 16:30 GLUCOSE POC LAB TO COLLECT JPM [POC] QIDACANDBED 01/11/21 21:00 GLUCOSE POC LAB TO COLLECT JPM [POC] QIDACANDBED 01/12/21 07:30 GLUCOSE POC LAB TO COLLECT JPM [POC] QIDACANDBED - Plan Plan:: ASSESSMENT AND PLAN HYPEROSMOTIC HYPERGLYCEMIC STATE-secondary to uncontrolled type 2 diabetes mellitus. Glucose control improved since admission with IV infusion of insulin -Transition to Lantus insulin 16 units at bedtime and low-dose sliding scale NovoLog -Saline lock IV -4 times daily glucometers -Metformin 500 mg p.o. twice daily POSSIBLE INFECTION-elevated white blood cell count, question of sepsis with hypotension. Findings may also be secondary to his hyperosmotic hyperglycemic state. Chest x-ray shows no obvious infiltrates, urinalysis was clear. No fevers since admission, white blood cell count is improved. Persistent hypotension despite IV fluids requiring use of IV norepinephrine, blood pressure is now stable -Blood cultures pending -IV norepinephrine to maintain adequate blood pressures -Empiric IV antibiotic therapy; vancomycin and meropenem pending cultures and further evaluation -Consider further evaluation including CT scan of the abdomen TYPE 2 DIABETES MELLITUS-new diagnosis -Management as above -Transition to other medications today ACUTE KIDNEY INJURY-renal function significantly improved with hydration -Closely monitor urine output and renal function HYPONATREMIA-improved with IV fluids and correction of marked hyperglycemia NICOTINE DEPENDENCE -Nicotine patch and nicotine gum as needed MAINTENANCE ISSUES -DVT prophylaxis; SCUDs -GI prophylaxis; not indicated -Mcgraw catheter; not indicated -Nutrition; consistent carbohydrate diet -Nicotine dependence; nicotine replacement as above CODE STATUS-FULL CODE ADMISSION STATUS-patient will be admitted to inpatient status, expect at least a 2 night hospital stay for evaluation and management of problems as outlined above. At the time of this admission I do not reasonably expected evaluation and management of this problem will require more than a 96 hour hospital stay. DISPOSITION-anticipate discharge to home after the hospital stay. PRIMARY CARE PROVIDER-Dr. Oden
[2021-01-07] MEDS ORDERED: Insulin Glargine,Human Rec. Analog 100 Units/ML 3 ML Pen SUBCUT ONE (11:55)
[2021-01-07] MEDS: Norepinephrine 4 MG in Dextrose 5% in Water 246 ML IV SCH ×2 (12:12)
[2021-01-07] MEDS ORDERED: Calcium Carbonate 500 MG Tab.Chew PO PRN (14:16)
[2021-01-07] MEDS: Pantoprazole 40 MG Tab.CR PO SCH (15:06)
[2021-01-07] MEDS: Insulin Lispro 100 Unit/ML 3 ML KwikPen SUBCUT SCH ×2 (16:17→20:48)
[2021-01-07] MEDS ORDERED: metFORMIN 500 MG Tab PO SCH (17:00)
[2021-01-07] MEDS ORDERED: Potassium Chloride 20 MEQ Tab.ER PO ONE (18:07)
[2021-01-07] MEDS ORDERED: Insulin Glargine,Human Rec. Analog 100 Units/ML 3 ML Pen SUBCUT SCH (21:00)
[2021-01-08] MEDS ORDERED: Iopamidol 612 MG/ML 50 ML SDV ONE (05:57)
[2021-01-08] MEDS ORDERED: Iopamidol 612 MG/ML 50 ML SDV PO ONE (06:04)
[2021-01-08] MEDS: Clotrimazole 10 MG Troche PO SCH ×3 (06:30→13:49)
[2021-01-08] MEDS ORDERED: Sodium Chloride 0.9% 10 ML Syringe FLUSH ONE (07:33)
[2021-01-08] MEDS ORDERED: Iopamidol 612 MG/ML 100 ML Bottle IV SCH (07:45)
[2021-01-08] MEDS ORDERED: Sodium Chloride 0.9% 100 ML IV SCH (07:45)
[2021-01-08] MEDS: Insulin Lispro 100 Unit/ML 3 ML KwikPen SUBCUT SCH ×2 (09:11→13:37)
[2021-01-08] MEDS: Pantoprazole 40 MG Tab.CR PO SCH (09:14)
[2021-01-08] MEDS: Meropenem 1 GM in Sodium Chloride 0.9% 100 ML IV SCH (09:14)
--- NOTE | 2021-01-08 09:47 | CT ---
Abdomen Pelvis w Cont CLINICAL HISTORY: Anorexia, weight loss COMPARISON: None. TECHNIQUE: Transverse scans were obtained from the base of the lungs to the pubic symphysis following oral contrast and IV infusion of contrast.Auto dosage reduction and iterative reconstructiontechniques employed. FINDINGS: There is moderate abdominal ascites. There is a large area of increased density in the mesentery as well as the peripancreatic fat extending along the descending duodenum. There is low-attenuation in the distal pancreatic body and tail which may represent some element of necrosis. There is some mucosal thickening in the descending and proximal transverse duodenum which may be related to regional inflammation The lung bases show some minimal streaky atelectasis and/or scarring in the right the lateral costophrenic angle. The liver shows no mass or biliary dilatation. The gallbladder has a normal contour. The spleen has a normal size and shape. The adrenal glands have a normal appearance . The right kidney contains a 2 cm low-attenuation focus in the lower pole medially consistent with a renal cyst. There is a 0.5 x 1.0 cm cyst in the midpole of the left kidney. No stones are seen. The ureters have a normal course and caliber. The bladder has a normal contour. The aorta shows moderate atheromatous plaque without aneurysm. There is no suspicious retroperitoneal adenopathy. IMPRESSION: Large inflammatory mass in the peripancreatic region involving the head body and tail. Low-attenuation in the pancreatic tail may represent some necrosis. This may represent pancreatitis alone but underlying neoplasm must be excluded. Abdominal pelvic ascites
[2021-01-08] MEDS: Nicotine 7 MG/24 Hr Patch TRDERM SCH (10:06)
[2021-01-08] MEDS: Nicotine 21 MG/24 Hr Patch TRDERM SCH (10:06)
--- NOTE | 2021-01-08 14:04 | PCM.DCSUM1 ---
Discharge Summary - Hospital Course Brief History: Mr. Berry is a 55-year-old gentleman who presented to the emergency department because of marked weakness and multiple metabolic abnormalities secondary to hyperosmolar hyperglycemic state. - Discharge Data Discharge Date: 01/08/21 Discharge Disposition: Home, Self-Care 01 Condition: Good - Referral to Home Health Primary Care Physician: Tom Oden MD - Discharge Diagnosis/Problem(s) (1) Pancreatic mass Status: Acute Current Visit: Yes (2) Type 2 diabetes mellitus SNOMED Code(s): 86723892 ICD Code: E11.9 - TYPE 2 DIABETES MELLITUS WITHOUT COMPLICATIONS Status: Acute Current Visit: Yes (3) Weakness SNOMED Code(s): 20289776 ICD Code: R53.1 - WEAKNESS Status: Acute Current Visit: Yes (4) Nicotine dependence SNOMED Code(s): 92268690 ICD Code: F17.200 - NICOTINE DEPENDENCE, UNSPECIFIED, UNCOMPLICATED Status: Chronic Current Visit: No (5) Hyperosmolar hyperglycemic state (HHS) SNOMED Code(s): 572543901 ICD Code: E11.00 - TYPE 2 DIAB W HYPROSM W/O NONKET HYPRGLY-HYPROS COMA ([facility]); E11.65 - TYPE 2 DIABETES MELLITUS WITH HYPERGLYCEMIA Status: Acute Current Visit: Yes - Patient Summary/Data Hospital Course: Mr. Berry is a 55-year-old gentleman who was admitted through the emergency department with generalized weakness, dehydration, secondary to hyperosmolar hyperglycemic state. He has no prior history of diabetes. Over the past 3 weeks he has experienced sinus infection upper respiratory infection, fever, nausea vomiting with diarrhea. He no longer has a fever and has not had nausea, vomiting, or diarrhea over the past week. He has noted polydipsia and polyuria. Because of progressive weakness he presented to the emergency department today and was found to be severely hyperglycemic with a glucose level of 628. Creatinine is elevated at 2, he denies prior history of renal insufficiency. Anion gap is significantly elevated with marked decrease in carbon dioxide level. White blood cell count is elevated, but he denies symptoms of specific infection at the present time. On admission he was given insulin bolus and started on a continuous infusion of insulin per ketoacidosis protocol. Electrolytes were monitored and he was given vigorous IV fluid replacement. Initially there was some question about possible underlying infection and sepsis and he did receive empiric IV antibiotic therapy. White blood cell count was elevated but did normalize during hospitalization. It was felt that the hypotension was most likely secondary to his hyperosmolar hyperglycemic state and not secondary to underlying infection. Hypotension initially did not respond to IV fluids and he was transiently treated with IV norepinephrine which did result in good improvement in blood pressure. With management electrolyte abnormalities including hypokalemia and hyponatremia resolved and glucose levels came under more appropriate control. He was transitioned to long-acting insulin with short acting insulin given via sliding scale. He currently does not have insurance and so he will be discharged home with Humulin 70/30 14 units twice daily. He was given glucose monitor and will monitor glucose levels 4 times daily and bring his records in for Dr. Oden to review. He experienced ongoing symptoms of nausea and abdominal discomfort. CT scan of the abdomen was obtained and did show a large pancreatic mass/inflammation involving the head body and tail of the pancreas. Lipase level was obtained and found to be within normal range. After discussion with Dr. Alonso of the radiology department it was felt that a percutaneous biopsy could be obtained. I reviewed this with the patient and his daughter and at this time patient is refusing to stay in the hospital for biopsy and further evaluation. We discussed a compromise which would involve scheduling the biopsy and having him return as an outpatient which he also refused. He understands that this could represent underlying malignancy and that delay in diagnosis could potentially delay treatment options. He will agreed to see Dr. Oden for a follow-up appointment and at that time biopsy can be discussed further. Activity will be as tolerated and he will be on a diabetic diet. Follow-up appointment will be scheduled with Dr. Oden within 1 week. - Patient Instructions Diet: Diabetic Diet Activity: As Tolerated Other/Special Instructions: Please schedule follow-up appointment with primary care provider within 1 week - Discharge Plan *PRESCRIPTION DRUG MONITORING PROGRAM REVIEWED*: Not Applicable *COPY OF PRESCRIPTION DRUG MONITORING REPORT IN PATIENT ALEJANDRO: Not Applicable Prescriptions/Med Rec: Insulin NPH/Insulin Reg,Human [HumuLIN 70-30] 14 units SUBCUT BID #1 vial Home Medications: Home Meds Valsartan/Hydrochlorothiazide [Valsartan-Hctz 160-12.5 mg Tab] 1 tab PO DAILY 01/06/21 [History] Insulin NPH/Insulin Reg,Human [HumuLIN 70-30] 14 units SUBCUT BID #1 vial 01/08/21 [Rx] Referrals: Tom Oden MD [Primary Care Provider] - - Discharge Summary/Plan Comment DC Time >30 min.: No - Patient Data Vitals - Most Recent: Last Vital Signs Temp 97.6 F 01/08/21 12:00 Pulse 106 H 01/08/21 12:00 Resp 16 01/08/21 10:00 BP 119/84 01/08/21 12:00 Pulse Ox 96 01/08/21 10:00 Weight - Most Recent: 154 lb 6.4 oz I&O - Last 24 hours: Intake & Output 01/07/21 01/08/21 01/08/21 22:59 06:59 14:59 Intake Total 620 1350 Output Total 800 1900 Balance -180 -550 Lab Results - Last 24 hrs: Laboratory Results - last 24 hr 01/07/21 01/08/21 01/08/21 Range/Units 17:20 05:53 05:53 WBC 10.8 (4.5-11.0) K/uL RBC 3.72 L (4.30-5.90) M/uL Hgb 11.6 L (12.0-15.0) g/dL Hct 34.0 L (40.0-54.0) % MCV 91 (80-98) fL MCH 31 (27-31) pg MCHC 34 (32-36) % Plt Count 106 L (150-400) K/uL Add Manual Diff Yes Neutrophils % (Manual) 78 H (36-66) % Band Neutrophils % 3 L (5-11) % Lymphocytes % (Manual) 10 L (24-44) % Monocytes % (Manual) 9 H (2-6) % Sodium 133 L 134 L (140-148) mmol/L Potassium 3.4 L 3.6 (3.6-5.2) mmol/L Chloride 96 L 98 L (100-108) mmol/L Carbon Dioxide 23 24 (21-32) mmol/L Anion Gap 17.4 H 15.6 H (5.0-14.0) mmol/L BUN 14 8 (7-18) mg/dL Creatinine 1.1 0.8 (0.8-1.3) mg/dL Est Cr Clr Drug Dosing 70.77 97.30 mL/min Estimated GFR (MDRD) > 60 > 60 (>60) Glucose 312 H 198 H (74-106) mg/dL Calcium 7.3 L 7.9 L (8.5-10.1) mg/dL Phosphorus 2.5 (2.5-4.9) mg/dL Magnesium 1.9 D 2.1 (1.8-2.4) mg/dL Lipase (73-393) U/L 01/08/21 Range/Units 09:50 WBC (4.5-11.0) K/uL RBC (4.30-5.90) M/uL Hgb (12.0-15.0) g/dL Hct (40.0-54.0) % MCV (80-98) fL MCH (27-31) pg MCHC (32-36) % Plt Count (150-400) K/uL Add Manual Diff Neutrophils % (Manual) (36-66) % Band Neutrophils % (5-11) % Lymphocytes % (Manual) (24-44) % Monocytes % (Manual) (2-6) % Sodium (140-148) mmol/L Potassium (3.6-5.2) mmol/L Chloride (100-108) mmol/L Carbon Dioxide (21-32) mmol/L Anion Gap (5.0-14.0) mmol/L BUN (7-18) mg/dL Creatinine (0.8-1.3) mg/dL Est Cr Clr Drug Dosing mL/min Estimated GFR (MDRD) (>60) Glucose (74-106) mg/dL Calcium (8.5-10.1) mg/dL Phosphorus (2.5-4.9) mg/dL Magnesium (1.8-2.4) mg/dL Lipase 123 (73-393) U/L BRO Results - Last 24 hrs: Microbiology 01/06/21 17:03 Aerobic Blood Culture - Preliminary Blood - Venous - Lab Draw NO GROWTH AFTER 1 DAY Anaerobic Blood Culture - Preliminary NO GROWTH AFTER 1 DAY 01/06/21 16:50 Aerobic Blood Culture - Preliminary Blood - Venous NO GROWTH AFTER 1 DAY Anaerobic Blood Culture - Preliminary NO GROWTH AFTER 1 DAY Med Orders - Current: Current Medications Acetaminophen (Acetaminophen 325 Mg Tab) 650 mg PO Q4H PRN PRN Reason: Pain (Mild 1-3)/fever Last Admin: 01/07/21 09:05 Dose: 650 mg Documented by: Albuterol (Albuterol 0.083% 2.5 Mg/3 Ml Neb Soln) 2.5 mg NEB Q4H PRN PRN Reason: Shortness Of Breath/wheezing Calcium Carbonate/Glycine (Calcium Carbonate 500 Mg Tab.Chew) 1,000 mg PO Q2H PRN PRN Reason: Indigestion Clotrimazole (Clotrimazole 10 Mg Keshav) 10 mg PO 5XDAY [facility] Last Admin: 01/08/21 13:49 Dose: 10 mg Documented by: Dextrose (Glucose Gel 15 Gm In 37.5 Gm Tube) 15 gm PO ONETIME PRN PRN Reason: Hypoglycemia Dextrose/Water (50% Dextrose In Water 50 Ml Syringe) 50 ml IV ONETIME PRN PRN Reason: Hypoglycemia Potassium Chloride 20 meq/ (Premix) 100 mls @ 50 mls/hr IV Q2H PRN PRN Reason: Hypokalemia Potassium Chloride 20 meq/ (Premix) 100 mls @ 50 mls/hr IV Q2H PRN PRN Reason: Hypokalemia Magnesium Sulfate (Magnesium Sulfate In Water 2 Gm/50 Ml) 2 gm in 50 mls @ 25 mls/hr IV ONETIME PRN PRN Reason: low magnesium Norepinephrine Bitartrate 4 mg (/ Dextrose/Water) 250 mls @ 7.5 mls/hr IV TITRATE [facility]; Protocol Last Titration: 01/07/21 15:40 Dose: 0 mcg/min, 0 mls/hr Documented by: Vancomycin HCl 1 gm/ Sodium (Chloride) 250 mls @ 166.667 mls/hr IV Q12H [facility] Last Admin: 01/08/21 10:49 Dose: 166.667 mls/hr Documented by: Meropenem 1 gm/ Sodium (Chloride) 100 mls @ 200 mls/hr IV Q8H [facility] Last Admin: 01/08/21 09:14 Dose: 200 mls/hr Documented by: Sodium Phosphate 60 mmole/ (Sodium Chloride) 270 mls @ 60 mls/hr IV ONETIME PRN PRN Reason: Low phophorus Last Admin: 01/07/21 09:00 Dose: 60 mls/hr Documented by: Insulin Glargine (Insulin Glargine,Human Rec. Analog 100 Units/Ml 3 Ml Pen) 16 units SUBCUT BEDTIME [facility] Last Admin: 01/07/21 20:47 Dose: 16 units Documented by: Insulin Human Lispro (Insulin Lispro 100 Unit/Ml 3 Ml Kwikpen) 0 unit SUBCUT QIDACANDBED [facility]; Protocol Last Admin: 01/08/21 13:37 Dose: 2 units Documented by: Metformin HCl (Metformin 500 Mg Tab) 500 mg PO BIDMEALS [facility] Last Admin: 01/07/21 16:18 Dose: 500 mg Documented by: Nicotine (Nicotine 21 Mg/24 Hr Patch) 21 mg TRDERM DAILY [facility] Last Admin: 01/08/21 10:06 Dose: 21 mg Documented by: Nicotine (Nicotine 7 Mg/24 Hr Patch) 7 mg TRDERM DAILY [facility] Last Admin: 01/08/21 10:06 Dose: 7 mg Documented by: Nicotine Polacrilex (Nicotine Polacrilex 2 Mg Gum) 4 mg CHEW Q1H PRN PRN Reason: Other Ondansetron HCl (Ondansetron 4 Mg/2 Ml Sdv) 4 mg IV Q4H PRN PRN Reason: Nausea/Vomiting Last Admin: 01/07/21 09:24 Dose: 4 mg Documented by: Pantoprazole Sodium (Pantoprazole 40 Mg Tab.Cr) 40 mg PO ACBREAKFAST [facility] Last Admin: 01/08/21 09:14 Dose: 40 mg Documented by: Polyethylene Glycol (Polyethylene Glycol 3350 Powder 17 Gm Packet) 17 gm PO DAILY PRN PRN Reason: Constipation Potassium Chloride (Potassium Chloride 10% 20 Meq/15 Ml Soln 15 Ml Ud Cup) 20 meq PO NOW PRN PRN Reason: Hypokalemia Last Admin: 01/07/21 09:40 Dose: 20 meq Documented by: Potassium Chloride (Potassium Chloride 10% 20 Meq/15 Ml Soln 15 Ml Ud Cup) 40 meq PO NOW PRN PRN Reason: Hypokalemia Potassium Chloride (Potassium Chloride 10% 20 Meq/15 Ml Soln 15 Ml Ud Cup) 40 meq PO Q2H PRN PRN Reason: Hypokalemia Sodium Chloride (Sodium Chloride 0.9% 10 Ml Syringe) 10 ml FLUSH ASDIRECTED PRN PRN Reason: Keep Vein Open Discontinued Medications Dextrose/Water (50% Dextrose In Water 50 Ml Syringe) 50 ml IVPUSH ONETIME PRN PRN Reason: Blood Glucose Lactated Ringer's (Ringers, Lactated) 1,000 mls @ 999 mls/hr IV ASDIRECTED [facility] Last Admin: 01/06/21 17:06 Dose: 999 mls/hr Documented by: Levofloxacin/Dextrose 500 mg/ (Premix) 100 mls @ 100 mls/hr IV ONETIME ONE Stop: 01/06/21 17:48 Last Admin: 01/06/21 17:06 Dose: 100 mls/hr Documented by: Lactated Ringer's (Ringers, Lactated) 1,000 mls @ 999 mls/hr IV BOLUS ONE Stop: 01/06/21 19:03 Last Admin: 01/06/21 18:05 Dose: 999 mls/hr Documented by: Sodium Chloride (Normal Saline) 2,000 mls @ 500 mls/hr IV .CONTINUOUS PRN PRN Reason: Blood Glucose Last Admin: 01/06/21 19:00 Dose: 500 mls/hr Documented by: Dextrose/Sodium Chloride (Dextrose 5%-1/2 Ns) 1,000 mls @ 150 mls/hr IV .CONTINUOUS PRN PRN Reason: Blood Glucose Last Admin: 01/07/21 07:45 Dose: 150 mls/hr Documented by: Potassium Chloride 20 meq/ (Premix) 100 mls @ 50 mls/hr IV ONETIME ONE Stop: 01/06/21 20:21 Last Admin: 01/06/21 20:21 Dose: 50 mls/hr Documented by: Sodium Phosphate 60 mmole/ (Sodium Chloride) 270 mls @ 60 mls/hr IV ONETIME PRN PRN Reason: Low phophorus Insulin Regular in 0.9 % NACL (Myxredlin In Ns 100 Unit/100 Ml) 100 mls @ 6.169 mls/hr IV ASDIRECTED [facility]; Protocol Last Infusion: 01/07/21 03:09 Dose: 0.05 units/kg/hr, 3 mls/hr Documented by: Meropenem 1 gm/ Sodium (Chloride) 100 mls @ 200 mls/hr IV Q12H [facility] Last Admin: 01/06/21 20:21 Dose: 200 mls/hr Documented by: Vancomycin HCl 1.5 gm/ Sodium (Chloride) 250 mls @ 166.667 mls/hr IV ONETIME ONE Stop: 01/06/21 22:29 Last Admin: 01/06/21 21:12 Dose: 166.667 mls/hr Documented by: Vancomycin HCl 1 gm/ Sodium (Chloride) 250 mls @ 166.667 mls/hr IV Q24H [facility] Sodium Chloride (Normal Saline) 100 mls @ 3 mls/sec IV ASDIRECTED [facility] Stop: 01/08/21 11:00 Last Admin: 01/08/21 08:41 Dose: 3 mls/sec Documented by: Insulin Glargine (Insulin Glargine,Human Rec. Analog 100 Units/Ml 3 Ml Pen) 16 units SUBCUT ONETIME ONE Stop: 01/07/21 11:56 Last Admin: 01/07/21 11:55 Dose: 16 units Documented by: Insulin Human Regular (Insulin Regular, Human 100 Units/Ml 3 Ml Vial) 6 unit IVPUSH ONETIME ONE Stop: 01/06/21 18:30 Last Admin: 01/06/21 18:57 Dose: 6 units Documented by: Iopamidol (Iopamidol 612 Mg/Ml 50 Ml Sdv) Confirm Administered Dose 50 ml .ROUTE .STK-MED ONE Stop: 01/08/21 05:58 Last Admin: 01/08/21 06:30 Dose: Not Given Documented by: Iopamidol (Iopamidol 612 Mg/Ml 50 Ml Sdv) 30 ml PO ASDIRECTED ONE Stop: 01/08/21 06:05 Last Admin: 01/08/21 06:23 Dose: 30 ml Documented by: Iopamidol (Iopamidol 612 Mg/Ml 100 Ml Bottle) 100 ml IV . DIRECTED [facility] Stop: 01/08/21 11:00 Last Admin: 01/08/21 08:41 Dose: 100 ml Documented by: Lidocaine HCl (Lidocaine 1% 5 Ml Sdv) 2 ml INJECT ONETIME ONE Stop: 01/06/21 19:57 Last Admin: 01/06/21 20:21 Dose: 2 ml Documented by: Potassium Chloride (Potassium Chloride 20 Meq Tab.Er) 40 meq PO ONETIME ONE Stop: 01/07/21 18:08 Last Admin: 01/07/21 18:27 Dose: 40 meq Documented by: Sodium Chloride (Sodium Chloride 0.9% 10 Ml Syringe) 10 ml FLUSH ONETIME ONE Stop: 01/08/21 07:34 Last Admin: 01/08/21 08:41 Dose: 10 ml Documented by: Vancomycin HCl (Vancomycin 1 Gm Sdv) 1 gm IV .PHARMACY TO [facility]SE [place] Stop: 01/07/21 07:30 - Exam General: Reports: Alert, Oriented, Cooperative Lungs: Reports: Clear to Auscultation, Normal Respiratory Effort Cardiovascular: Reports: Regular Rate, Regular Rhythm, No Murmurs GI/Abdominal Exam: Soft, No Organomegaly, Tender. No: Distended, Guarding, Rigid, Rebound Extremities: Non-Tender, No Pedal Edema
== END 2021-01-08 15:06 | disposition home or self-care (01) | DRG 638 ==
LOC: JP.ED 15:57 → JP.ICU 18:31
PROVIDERS: ADMIT Hospitalist; ATTEND Hospitalist
PROC: 3E033XZ Introduction of Vasopressor into Peripheral Vein, Percutaneous Approach (ICD-10-PCS; principal; 2021-01-06)
DX: E11.00 Type 2 diabetes mellitus with hyperosmolarity without nonketotic hyperglycemic-hyperosmolar coma (NKHHC) (principal); N17.9 Acute kidney failure, unspecified; E87.1 Hypo-osmolality and hyponatremia; E11.65 Type 2 diabetes mellitus with hyperglycemia; F17.200 Nicotine dependence, unspecified, uncomplicated; H54.7 Unspecified visual loss; Z20.822 Contact with and (suspected) exposure to COVID-19; K86.89 Other specified diseases of pancreas; E86.0 Dehydration; E87.6 Hypokalemia; Z88.8 Allergy status to other drugs, medicaments and biological substances
CPT/HCPCS: 0241U; 36415; 71045; 71045-26; 74177; 74177-26; 80048; 80053; 81001; 82009; 82962; 83036; 83605; 83690; 83735; 84100; 84132; 84145; 84484; 85025; 85610; 86140; 87040; 96365; 99284; 99285-25; A9270-GY; J1815; J1815-GY; J1956; J2185; J2405; J3370; J3480; J7030; J7042; J7050; J7060; J7120; Q9967

== ENCOUNTER 2021-11-18 12:33 | Inpatient (IN) | payer MEDICAID ==
[2021-11-18] MEDS ORDERED: Ondansetron 4 MG/2 ML SDV IVPUSH ONE (13:58)
[2021-11-18] MEDS ORDERED: fentaNYL 100 MCG/2 ML SDV IVPUSH ONE (13:59)
[2021-11-18] MEDS ORDERED: Sodium Chloride 0.9% 1,000 ML IV SCH (14:00)
[2021-11-18 14:17] LABS: CORONAVIRUS COVID-19 NAA NEGATIVE (NEGATIVE)
[2021-11-18] MEDS ORDERED: Pantoprazole 40 MG Vial IVPUSH ONE (15:58)
[2021-11-18] MEDS ORDERED: Sodium Chloride 0.9% 800 ML IV SCH (16:00)
[2021-11-18] MEDS ORDERED: Melatonin 3 MG Tab PO PRN (16:59)
[2021-11-18] MEDS ORDERED: LORazepam 2 MG/ML SDV IVPUSH PRN (16:59)
[2021-11-18] MEDS ORDERED: Magnesium Hydroxide 400 MG/5 ML Susp 30 ML Cup PO PRN (16:59)
[2021-11-18] MEDS ORDERED: Ondansetron 4 MG/2 ML SDV IV PRN (16:59)
[2021-11-18] MEDS ORDERED: Acetaminophen 325 MG Tab PO PRN (16:59)
[2021-11-18] MEDS ORDERED: fentaNYL 100 MCG/2 ML SDV IVPUSH PRN (16:59)
[2021-11-18] MEDS ORDERED: Ondansetron 4 MG Tab.DIS PO PRN (16:59)
[2021-11-18] MEDS ORDERED: Albuterol 0.083% 2.5 MG/3 ML Neb Soln NEB PRN (16:59)
[2021-11-18] MEDS: Sodium Chloride 0.9% 1,000 ML IV SCH (17:18)
[2021-11-18] MEDS: Insulin Lispro 100 Unit/ML 3 ML KwikPen SUBCUT SCH ×2 (17:23→20:56)
[2021-11-18] MEDS ORDERED: Nicotine 21 MG/24 Hr Patch TRDERM ONE (18:00)
[2021-11-18] MEDS: Potassium Chloride 20 MEQ in Premix Bag 1 BAG IV SCH ×2 (19:37→21:57)
[2021-11-18] MEDS ORDERED: Sodium Chloride 0.9% 500 ML IV ONE (21:22)
[2021-11-18] MEDS ORDERED: Sodium Chloride 3% 500 ML ONE (22:59)
[2021-11-18] MEDS ORDERED: Sodium Chloride 3% 50 ML IV ONE (23:00)
[2021-11-19] MEDS: Sodium Chloride 0.9% 1,000 ML IV SCH ×3 (01:30→17:07)
[2021-11-19] MEDS ORDERED: Pantoprazole 40 MG Vial IV SCH (06:00)
[2021-11-19] MEDS ORDERED: Potassium Chloride 20 MEQ, Lidocaine 1% 2 ML in Sodium Chloride 0.9% 100 ML IV SCH (07:00)
[2021-11-19] MEDS: Insulin Lispro 100 Unit/ML 3 ML KwikPen SUBCUT SCH ×4 (08:44→21:40)
[2021-11-19] MEDS: Nicotine 21 MG/24 Hr Patch TRDERM SCH (08:48)
[2021-11-19] MEDS: Potassium Chloride 20 MEQ, Lidocaine 1% 2 ML in Sodium Chloride 0.9% 100 ML IV SCH ×2 (08:50→13:12)
[2021-11-19] MEDS: Pantoprazole 40 MG Tab.CR PO SCH (17:04)
[2021-11-20] MEDS: Sodium Chloride 0.9% 1,000 ML IV SCH (01:10)
[2021-11-20] MEDS ORDERED: fentaNYL 100 MCG/2 ML SDV ONE (07:07)
[2021-11-20] MEDS ORDERED: Propofol 200 MG/20 ML SDV ONE (07:07)
[2021-11-20] MEDS ORDERED: Midazolam 1 MG/ML 2 ML SDV ONE (07:07)
[2021-11-20] MEDS ORDERED: Sodium Chloride 0.9% 500 ML ONE (09:02)
[2021-11-20] MEDS: Insulin Lispro 100 Unit/ML 3 ML KwikPen SUBCUT SCH ×2 (10:00→11:33)
[2021-11-20] MEDS: Pantoprazole 40 MG Tab.CR PO SCH (10:00)
[2021-11-20] MEDS: Nicotine 21 MG/24 Hr Patch TRDERM SCH (10:00)
[2021-11-20] MEDS ORDERED: Nystatin Susp 100,000 Unit/ML 5 ML UD Cup PO SCH (10:15)
== END 2021-11-20 11:45 | disposition home or self-care (01) | DRG 683 ==
LOC: JP.ED 12:33 → JP.ICU 16:00 → JP.ED 16:47
PROVIDERS: ADMIT Internal Medicine; ATTEND Internal Medicine
PROC: 0DB68ZX Excision of Stomach, Via Natural or Artificial Opening Endoscopic, Diagnostic (ICD-10-PCS; principal; 2021-11-20)
DX: N17.9 Acute kidney failure, unspecified (principal); E87.1 Hypo-osmolality and hyponatremia; K86.3 Pseudocyst of pancreas; B48.8 Other specified mycoses; F17.210 Nicotine dependence, cigarettes, uncomplicated; E87.6 Hypokalemia; K20.90 Esophagitis, unspecified without bleeding; Z20.822 Contact with and (suspected) exposure to COVID-19; T46.5X5A Adverse effect of other antihypertensive drugs, initial encounter; H54.7 Unspecified visual loss; I10 Essential (primary) hypertension; E11.9 Type 2 diabetes mellitus without complications; Z88.0 Allergy status to penicillin; Z91.09 Other allergy status, other than to drugs and biological substances; Z79.4 Long term (current) use of insulin; Z79.899 Other long term (current) drug therapy
CPT/HCPCS: 0241U; 36415; 80048; 80053; 82150; 82947; 83690; 83735; 84295; 85025; 85027; 87081; 96374; 96375; 99284-25; 99285; A9270-GY; C9113; J1815; J2250; J2405; J2704; J3010; J3480; J7030; J7040; J7131

== ENCOUNTER 2025-04-17 16:24 | Emergency (ER) | payer MEDICAID ==
[2025-04-17 17:19] LABS: BASOPHILS ABSOLUTE AUTO 0.05 K/uL (0.00-0.10); BASOPHILS PERCENT AUTO 0.4 % (0.1-1.3); EOSINOPHILS ABSOLUTE AUTO 0.17 K/uL (0.00-0.40); EOSINOPHILS PERCENT AUTO 1.4 % (0.0-5.4); IMMATURE GRAN ABSOLUTE AUTO 0.12 K/uL (0.00-0.23); IMMATURE GRAN PERCENT AUTO 1.0 % (0.0-0.7); LYMPHOCYTES ABSOLUTE AUTO 0.75 K/uL (0.8-3.3); LYMPHOCYTES PERCENT AUTO 6.3 % (11.4-47.7); MONOCYTES ABSOLUTE AUTO 0.68 K/uL (0.20-0.90); MONOCYTES PERCENT AUTO 5.7 % (3.3-12.6); NEUTROPHILS ABSOLUTE AUTO 10.12 K/uL (1.0-7.6); NEUTROPHILS PERCENT AUTO 85.2 % (40.0-78.1); PLATELET COUNT,PLT 165 K/uL (130-375); RED BLOOD CELL COUNT 4.91 M/uL (4.14-5.76); WHITE BLOOD CELL COUNT,WBC 11.9 K/uL (3.2-11.0)
[2025-04-17 17:41] LABS: A/G RATIO 0.8 (1.2-2.2); ALANINE AMINOTRANSFERASE,ALT 39 U/L (12-78); ASPARTATE AMNIOTRANSFERASE,AST 42 U/L (15-37); BILIRUBIN TOTAL 2.1 mg/dL (0.2-1.0); BLOOD UREA NITROGEN,BUN 15 mg/dL (7-18); CARBON DIOXIDE,CO2 29 mmol/L (21-32); CHLORIDE,CL 85 mmol/L (100-108); CREATININE 0.7 mg/dL (0.8-1.3); EST CRCL DRUG DOSING (CG) 102.54 mL/min; ESTIMATED GFR 106 mL/min (>60); GLUCOSE RANDOM 244 mg/dL (74-106); POTASSIUM,K 3.5 mmol/L (3.6-5.2); PROTEIN TOTAL,TP 6.9 g/dL (6.4-8.2); SODIUM,NA 127 mmol/L (140-148)
== END 2025-04-17 18:30 | disposition home or self-care (01) ==
LOC: JP.ED 16:24
DX: F10.10 Alcohol abuse, uncomplicated (principal); I10 Essential (primary) hypertension; E10.9 Type 1 diabetes mellitus without complications; F17.200 Nicotine dependence, unspecified, uncomplicated; Z88.1 Allergy status to other antibiotic agents; Z91.048 Other nonmedicinal substance allergy status; Z79.1 Long term (current) use of non-steroidal anti-inflammatories (NSAID); Z79.51 Long term (current) use of inhaled steroids; Z79.84 Long term (current) use of oral hypoglycemic drugs
CPT/HCPCS: 36415; 80053; 80307; 83605; 85025; 99285